=== PATIENT | male | born 1955 | race Caucasian/White ===

== ENCOUNTER 2017-11-09 07:18 | Observation (INO) | END 2017-11-10 17:10 | disposition home health service (06) ==

== ENCOUNTER 2018-06-14 05:40 | Inpatient (IN) | payer MEDICARE, OTHER ==
[~2018-06-14] VITALS: Ht 167.6 cm; Wt 125.6 kg
[2018-06-14] VITALS (23 sets, daily range): BP systolic 129–162; BP diastolic 63–84; PULSE 64–94; RESP 13–20; Ht 167.6 cm; Wt 125.6 kg
[~2018-06-14 05:40] MED LIST: MTF1000T PO
[2018-06-14] MEDS ORDERED: LANSOPRAZOLE 30 MG CAP PO ONE (06:00)
[2018-06-14] MEDS ORDERED: ONDANSETRON 4 MG INJ IV ONE (06:00)
[2018-06-14] MEDS ORDERED: ACETAMINOPHEN 500 MG TAB PO ONE (06:00)
[2018-06-14] MEDS ORDERED: LACTATED RINGER'S 1,000 ML IV SCH (06:00)
[2018-06-14] MEDS ORDERED: oxyCODONE (CR) 10 MG TAB [oxyCONTIN] PO ONE (06:00)
[2018-06-14] MEDS ORDERED: DEXAMETHASONE 4 MG/ML 1 ML INJ IV ONE (06:00)
[2018-06-14] MEDS ORDERED: TRANEXAMIC ACID 1GM/100ML(PMX) 100 ML INTRA-OP X1 IVPB ONE (06:00)
[2018-06-14] MEDS ORDERED: TRANEXAMIC ACID 1GM/100ML(PMX) 100 ML PRE-OP X1 IVPB ONE (06:00)
--- NOTE | 2018-06-14 06:27 | HPN ---
Date/Time of Note Date/Time of Note DATE: 06/14/18 TIME: 06:27 Interval H&P Admission Note Pt. seen H&P reviewed: No system changes ALAYNA APONTE MD June 14, 2018 06:27
[2018-06-14] MEDS ORDERED: POLYMYXIN B 500000 UNIT INJ ONE (06:52)
[2018-06-14] MEDS ORDERED: BACITRACIN 50000 UNITS INJ ONE (06:53)
[2018-06-14] MEDS ORDERED: ACETAMINOPHEN 1000MG/100ML IV 100 ML IVPB ONE (07:00)
[2018-06-14] MEDS ORDERED: DESFLURANE 15 MIN ONE (07:00)
[2018-06-14] MEDS ORDERED: ATOR10TA65 PO (07:13)
[2018-06-14] MEDS ORDERED: CARV25TA79 PO (07:13)
[2018-06-14] MEDS ORDERED: ASPI81TA52 PO (07:13)
[2018-06-14] MEDS ORDERED: GLIP5TAB13 PO (07:14)
[2018-06-14] MEDS ORDERED: INSU100I33 SC (07:14)
[2018-06-14] MEDS ORDERED: PROPOFOL 20 ML ONE (07:27)
[2018-06-14] MEDS ORDERED: NEOSTIGMINE 3 MG/3 ML SYRINGE ONE (07:27)
[2018-06-14] MEDS ORDERED: SUCCINYLCHOLINE CHLORIDE 100 MG/5 ML SYG IV ONE (07:27)
[2018-06-14] MEDS ORDERED: DEXAMETHASONE 4 MG/ML 5 ML INJ ONE (07:27)
[2018-06-14] MEDS ORDERED: GLYCOPYRROLATE 0.4 MG INJ ONE (07:27)
[2018-06-14] MEDS ORDERED: MIDAZOLAM 1 MG/ML 2 ML INJ ONE (07:27)
[2018-06-14] MEDS ORDERED: TRANEXAMIC ACID 1 GM/100 ML (PMX) ONE (07:27)
[2018-06-14] MEDS ORDERED: CEFAZOLIN 1 GM INJ ONE ×2 (07:27)
[2018-06-14] MEDS ORDERED: FENTAnyl 50 MCG/ML VIAL ONE (07:27)
[2018-06-14] MEDS ORDERED: ROCURONIUM 50 MG INJ ONE (07:27)
[2018-06-14] MEDS ORDERED: ONDANSETRON 4 MG INJ ONE (07:27)
[2018-06-14] MEDS ORDERED: morphine SULFATE/PF (10 MG/10 ML) INJ ONE (07:28)
[2018-06-14] MEDS ORDERED: ROPIVACAINE 0.2% 60 ML, morphine SULFATE (PF) 4 MG, CLONIDINE 100 MCG, KETOROLAC 30 MG,... INJ SCH ×7 (07:30)
[2018-06-14] MEDS ORDERED: ROPIVACAINE 0.5 % 30 ML VIAL ONE (08:01)
--- NOTE | 2018-06-14 08:28 | PREAC ---
Date/Time of Note Date/Time of Note DATE: 06/14/18 TIME: 08:27 Anesthesia Eval and Record Evaluation Time Pre-Procedure Interview DATE: 06/14/18 TIME: 08:27 Age 62 Sex male NPO: 8 hrs Preoperative diagnosis LEFT KNEE OA Planned procedure LEFT TKA Past Medical History Past Medical History: Includes Cardio: HTN, Dyslipidemia Endo: Diabetes GI: Morbid obesity Surgery & Anesthesia Issues No known issue Meds Anticoagulation: No Beta Khang within 24 hr: Yes Reported Medications Insulin Glargine,Hum.rec.anlog (Basaglar Kwikpen U-100) 100 Unit/1 Ml Insuln.pen, 30 UNIT SC QHS, EA 06/14/18 Glipizide* (Glipizide*) 5 Mg Tablet, 5 MG PO BID, TAB 06/14/18 Carvedilol* (Carvedilol*) 25 Mg Tablet, 25 MG PO BID, #60 TAB 06/14/18 Atorvastatin Calcium (Atorvastatin Calcium) 10 Mg Tablet, 10 MG PO QHS, #30 TAB 06/14/18 Aspirin (Low Dose Aspirin) 81 Mg Tablet.dr, 81 MG PO DAILY, #30 TAB 06/14/18 Metformin* (Glucophage*) 1,000 Mg Tablet, 1000 MG PO BID, #60 TAB 11/08/17 Discontinued Reported Medications Ciprofloxacin Hcl* (Ciprofloxacin Hcl*) 500 Mg Tablet, 500 MG PO BID, #14 TAB STARTED 11-03-17 FOR 7 DAYS 11/08/17 Losartan Potassium* (Losartan Potassium*) 50 Mg Tablet, 50 MG PO BID, TAB 11/08/17 Glyburide* (Glyburide*) 5 Mg Tablet, 5 MG PO BID, #60 TAB 11/08/17 Current Medications Lactated Ringer's 1,000 ml @ 125 mls/hr Q8H IV Last administered on 06/14/18at 06:51; Admin Dose 125 MLS/HR; Start 06/14/18 at 06:00; Stop 06/14/18 at 13:59 Ropivacaine/ Morphine Sulfate/ Clonidine/ Ketorolac Tromethamine/ Vancomycin HCl/ Sodium Chloride/ Epinephrine INTRA-OP INJ Last administered on 06/14/18at 08:24; Admin Dose 116.3 ML; Start 06/14/18 at 07:30; Stop 06/14/18 at 16:00 Meds reviewed: Yes Allergies Coded Allergies: No Known Allergy (Unverified , 06/14/18) Allergies Reviewed: Yes Labs/Studies Labs Reviewed: Reviewed by anesthesiologist Blood Bank Test 06/14/18 06:20 Antibody Screen NEGATIVE Blood Type O POSITIVE test: N/A Studies: ECG (RBBB, LAHB), CXR (NAD) Pre-procedure Exam Last vitals Vital Signs Date Temp Pulse Resp B/P (MAP) Pulse Ox O2 O2 Flow FiO2 Time Delivery Rate 06/14/18 98.5 64 18 144/79 98 Room Air 07:17 (100) Airway: Adequate mouth opening, Adequate thyromental dist Mallampati: Mallampati II Teeth: Normal Lung: Normal Heart: Normal ASA Physical Status ASA physical status: 3 Emergency: None Planned Anesthetic General/MAC: ETT Neuraxial: Spinal Planned Pain Management Sub-arachniod narcotics, Single shot nerve block, Parenteral pain med Pre-operative Attestations Prior to commencing anesthesia and surgery, the patient was re-evaluated, there was verification of: *The patient's identity *The results of appropriate recent lab work and preoperative vital signs *The above evaluation not changing prior to induction *Anesthetic plan, risk benefits, alternative and complications discussed with patient/family; questions answered; patient/family understands, accepts and wishes to proceed. Jas Garcia M.D. June 14, 2018 08:28
[2018-06-14] MEDS ORDERED: LABETALOL HCL 20MG INJ IV PRN (08:30)
[2018-06-14] MEDS ORDERED: hydrALAzine 20 MG INJ IV PRN ×2 (08:30→15:00)
[2018-06-14] MEDS ORDERED: HYDROmorphONE 0.5 MG/0.5 ML SYG IV PRN ×2 (08:30)
[2018-06-14] MEDS ORDERED: TRIMETHOBENZAMIDE 100 MG/ML VIAL IM PRN ×2 (08:30)
[2018-06-14] MEDS ORDERED: NALOXONE (0.4 MG/ML) INJ IV PRN ×2 (08:30→10:00)
[2018-06-14] MEDS ORDERED: MIDAZOLAM 1 MG/ML 2 ML INJ IV PRN (08:30)
[2018-06-14] MEDS ORDERED: EPHEDrine SULFATE 50 MG/5 ML SYG IV PRN (08:30)
[2018-06-14] MEDS ORDERED: HYDROmorphONE 1 MG/5 ML IV SYRINGE IV PRN ×3 (08:30)
[2018-06-14] MEDS ORDERED: DIPHENHYDRAMINE 50 MG INJ IV PRN ×2 (08:30)
[2018-06-14] MEDS ORDERED: ALBUTEROL 0.083% (NEB) 2.5 MG/3 ML AMP HHN PRN (08:30)
[2018-06-14] MEDS ORDERED: ONDANSETRON 4 MG INJ IV PRN ×2 (08:30)
[2018-06-14] MEDS ORDERED: NALBUPHINE HCL (10 MG/1 ML) INJ IV PRN (08:30)
[2018-06-14] MEDS ORDERED: MEPERIDINE 25 MG INJ IV PRN (08:30)
[2018-06-14] MEDS ORDERED: OXYCODONE/ACETAMINOPHEN (5/325) TAB PO PRN ×2 (08:30)
[2018-06-14] MEDS ORDERED: FENTAnyl 50 MCG/ML VIAL IV PRN ×3 (08:30)
[2018-06-14] MEDS ORDERED: IPRATROPIUM (NEB) 0.5 MG/2.5 ML AMP HHN PRN (08:30)
[2018-06-14] MEDS ORDERED: KETOROLAC 30 MG INJ IV PRN (08:30)
[2018-06-14] MEDS ORDERED: SUGAMMADEX SODIUM 200 MG/2 ML VIAL IV ONE (09:47)
--- NOTE | 2018-06-14 09:47 | SIPON ---
Date/Time of Note Date/Time of Note DATE: 06/14/18 TIME: 09:46 Operative Report Preoperative Diagnosis Left Knee Osteoarthritis Postoperative Diagnosis Same Operation/Procedure Performed Left Total Knee Arthroplasty Surgeon Messi Aponte MD assistant scientist Jeovany Wilkinson Second assist: ANNA RESTREPO Anesthesia: spinal Estimated blood loss: other Transfusion Required none Specimen bone Grafts/Implants none Complications none MESSI APONTE MD June 14, 2018 09:47
[2018-06-14] MEDS ORDERED: NACL 0.9% 3 ML SYG IV SCH (10:00)
[2018-06-14] MEDS ORDERED: DOCUSATE SODIUM 100 MG CAP PO ONE (10:00)
--- NOTE | 2018-06-14 10:36 | OPR ---
Date/Time of Note Date/Time of Note DATE: 06/14/18 TIME: 10:23 Operative Report Free Text/Dictation DATE OF OPERATION: June 14, 2018 SURGEON: Alayna Aponte MD PRINTING MACHINE OPERATOR TAPE RULES: Jeovany ALTAMIRANO PRINTING MACHINE OPERATOR TAPE RULES: RAYA Merino PREOPERATIVE DIAGNOSIS: Left knee osteoarthritis. POSTOPERATIVE DIAGNOSIS: Left knee osteoarthritis. PROCEDURES PERFORMED: Left total knee arthroplasty, CPT code 75151. ANESTHESIOLOGIST: Dr. Garcia ANESTHESIA: Spinal. ESTIMATED BLOOD LOSS: 300 mL. COMPLICATIONS: None. SPECIMENS: Resected bone. DISPOSITION: PACU in stable condition. TOURNIQUET TIME: 62 minutes at 250 mmHg. IMPLANT USED: Castellanos and Nephew size 5 Sadia tibial baseplate with 12 x 100 mm stem, size 5 posterior stabilized Oxinium femur, size 11 high flexion polyethylene, size 35 mm patella. INDICATION FOR PROCEDURE: This is an 62-year-old male with end-stage osteoarthritis of the left knee who had failed nonoperative management. Risks, benefits, alternatives of surgical intervention were discussed with the patient and informed consent was obtained. The risks of surgery include but are not limited to infection, deep venous thrombosis, pulmonary embolism, damage to nerves and blood vessels, numbness around incision site, stiffness of knee, need for total knee manipulation under anesthesia, need for blood transfuion, heart attack, stroke, risks associated with anesthesia, implant loosening, wear of prosthesis, need for revision surgery, and . DESCRIPTION OF PROCEDURE: The patient was met in the preoperative suite. The correct operative site was confirmed and marked. The patient was then brought into operating room. After induction of anesthesia, the patient was placed in the supine position on the operating room table. A tourniquet was applied to left upper thigh. The left lower extremity was prepped and draped in the usual sterile fashion. Before starting, a timeout was taken to identify the correct operative site and confirm preoperative antibiotics consisting of 1 g of IV Ancef, along with 1 g of tranexamic acid were administered. At this point, the left leg was elevated and exsanguinated with an Esmarch and tourniquet was then insufflated for the above noted time. A midline incision was made and median parapatellar arthrotomy was then completed. The lateral patellar retinacular ligaments were released. A sleeve of tissue was released from the medial proximal tibia. The cruciate ligaments and the menisci were then excised. At this point, the custom distal femur cutting block was then pinned and 9.5 mm was resected from the distal femur. The 4-in-1 cutting block, size 5 was then placed. An sp wing was used to confirm that notching of the anterior cortex of the femur would not occur. The anterior and posterior condylar cuts were completed followed by the anterior and posterior chamfer cuts. The osteophytes were then removed with a rongeur. At this point, the tibia was subluxed anteriorly. Appropriate retractors were placed. The custom tibial cutting block was then pinned. The drop love was used to ensure the correct alignment. Approximately 11 mm was resected off the lateral tibial plateau and 1 mm off the medial tibial plateau. Osteophytes were then removed. At this point, the flexion extension gaps were checked with a 9 mm gap cash checker and noted to be loose in both. Next, trial 5 femur was then pinned and the box cut was then completed. The tibia was then subluxed anteriorly and measured to size 5. The tibial tray was then pinned and a keel was then punched. The trial components were placed with a 11 mm polyethylene and noted to have full extension and greater than 120 degrees of flexion. The patella was then subluxed laterally and sized to 24 mm. Approximately, 9 mm was resected. The patellar button was sized to 35 mm. The button was placed and noted to have excellent patellar tracking. The trial components were removed. Due to the patient's BMI, reaming was performed for tibial stem. All bony surfaces were pulse lavaged and dried. The appropriate size components were then cemented and the knee was held in extension with a 11 mm trial polyethylene until the cement cured. Once the cement had cured, the trial polyethylene was removed and the appropriate size polyethylene was then placed. The tranexamic acid was redosed. The cocktail was then injected. The extensor mechanism was closed using #1 Stratafix and the subcutaneous tissue with 2-0 Vicryl and the skin with 4-0 Monocryl. Steri-Strips were applied along with a sterile dressing. There were no complications. The patient was transferred to PACU in stable condition. POSTOPERATIVE CARE: The patient will be weightbearing as tolerated. The patient will work with physical therapy, and will receive two additional doses of IV antibiotics along with aspirin 81 mg p.o. b.i.d. for 6 weeks. Upon d ischarge, patient will follow up in my office within 2 weeks postoperatively. ALAYNA APONTE MD June 14, 2018 10:36
--- NOTE | 2018-06-14 10:41 | PAC ---
Date/Time of Note Date/Time of Note DATE: 06/14/18 TIME: 10:41 Post-Anesthesia Notes Post-Anesthesia Note Last documented vital signs Vital Signs Date Temp Pulse Resp B/P (MAP) Pulse Ox O2 O2 Flow FiO2 Time Delivery Rate 06/14/18 98.5 64 18 144/79 98 Room Air 07:17 (100) Activity: WNL Respiratory function: WNL Cardiovascular function: WNL Mental status: Baseline Pain reasonably controlled: Yes Hydration appropriate: Yes Nausea/Vomiting absent: Yes Jas Garcia M.D. June 14, 2018 10:41
[2018-06-14] MEDS: CEFAZOLIN 2 GM/50 ML (PMX) 50 ML IVPB SCH ×2 (10:55→18:36)
[2018-06-14] MEDS: ONDANSETRON 4 MG INJ IV SCH ×3 (10:56→21:45)
[2018-06-14] MEDS: INSULIN ASPART [NOVOLOG] 3 ML PEN SC SCH ×4 (11:40→23:18)
--- NOTE | 2018-06-14 11:50 | CONS ---
Assessment/Plan Assessment/Plan Hospital Course (Demo Recall) Patient is a male with a past medical history significant for osteoarthritis, this lipidemia, hypertension, diabetes mellitus who presents to [facility] for elective left knee replacement. Patient doing well in the postanesthesia care unit, has no acute complaints at this time, no chest pain, no shortness of breath, no headache, no nausea, no vomiting. Patient able to wiggle his toes on both sides. Objective Physical exam General: Patient is laying in bed and answers questions appropriately Mentation: Patient is alert and oriented 4, Head: Normocephalic atraumatic Eyes: EOMI, pupils reactive to light Neck: Supple, nontender, midline Respiratory: Clear to auscultation bilaterally Cardiovascular: regular rate, no obvious murmurs Gastrointestinal: non-tender to palpation, bowel sounds heard. Neurological: Moves all extremities spontaneously, left leg motion reduced due to bandage Skin: Surgical site bandaged, CDI Assessment and plan Total left knee arthroplasty secondary to osteo-arthritis -Orthopedic surgery to manage -Pain control -Monitor Hypertension -Continue home meds Diabetes mellitus -Continue home Lantus, insulin sliding scale, hold p.o. meds for now Dyslipidemia -Continue home meds Disposition -We will continue to follow along as internal medicine consult, orthopedic surgery to manage. Consultation Date/Type/Reason Admit Date/Time June 14, 2018 at 05:40 Date/Time of Note DATE: 06/14/18 TIME: 11:49 Past Medical History Home Meds Reported Medications Insulin Glargine,Hum.rec.anlog (Chaunceyagljayce Luzpen U-100) 100 Unit/1 Ml Insuln.pen, 30 UNIT SC QHS, EA 06/14/18 Glipizide* (Glipizide*) 5 Mg Tablet, 5 MG PO BID, TAB 06/14/18 Carvedilol* (Carvedilol*) 25 Mg Tablet, 25 MG PO BID, #60 TAB 06/14/18 Atorvastatin Calcium (Atorvastatin Calcium) 10 Mg Tablet, 10 MG PO QHS, #30 TAB 06/14/18 Aspirin (Low Dose Aspirin) 81 Mg Tablet.dr, 81 MG PO DAILY, #30 TAB 06/14/18 Metformin* (Glucophage*) 1,000 Mg Tablet, 1000 MG PO BID, #60 TAB 11/08/17 Discontinued Reported Medications Ciprofloxacin Hcl* (Ciprofloxacin Hcl*) 500 Mg Tablet, 500 MG PO BID, #14 TAB STARTED 11-03-17 FOR 7 DAYS 11/08/17 Losartan Potassium* (Losartan Potassium*) 50 Mg Tablet, 50 MG PO BID, TAB 11/08/17 Glyburide* (Glyburide*) 5 Mg Tablet, 5 MG PO BID, #60 TAB 11/08/17 Medications Current Medications Lactated Ringer's 1,000 ml @ 125 mls/hr Q8H IV Last administered on 06/14/18at 06:51; Admin Dose 125 MLS/HR; Start 06/14/18 at 06:00; Stop 06/14/18 at 13:59 Ropivacaine/ Morphine Sulfate/ Clonidine/ Ketorolac Tromethamine/ Vancomycin HCl/ Sodium Chloride/ Epinephrine INTRA-OP INJ Last administered on 06/14/18at 08:24; Admin Dose 116.3 ML; Start 06/14/18 at 07:30; Stop 06/14/18 at 16:00 Hydromorphone HCl (Dilaudid) 0.2 mg PACU PRN IV MILD PAIN 1-3; Start 06/14/18 at 08:30; Stop 06/14/18 at 19:00 Hydromorphone HCl (Dilaudid) 0.4 mg PACU PRN IV MOD PAIN 4-6; Start 06/14/18 at 08:30; Stop 06/14/18 at 19:00 Hydromorphone HCl (Dilaudid) 0.6 mg PACU PRN IV SEVERE PAIN 7-10; Start 06/14/18 at 08:30; Stop 06/14/18 at 19:00 Fentanyl (Sublimaze) 25 mcg PACU ORDER PRN IV MILD PAIN 1-3; Start 06/14/18 at 08:30; Stop 06/14/18 at 19:00 Fentanyl (Sublimaze) 50 mcg PACU ORDER PRN IV MOD PAIN 4-6; Start 06/14/18 at 08:30; Stop 06/14/18 at 19:00 Fentanyl (Sublimaze) 75 mcg PACU ORDER PRN IV SEVERE PAIN 7-10; Start 06/14/18 at 08:30; Stop 06/14/18 at 19:00 Oxycodone/ Acetaminophen (Percocet (5/ 325)) 1 tab PACU ORDER PRN PO .PAIN 1-5; Start 06/14/18 at 08:30; Stop 06/14/18 at 19:00 Oxycodone/ Acetaminophen (Percocet (5/ 325)) 2 tab PACU ORDER PRN PO .PAIN 6-10; Start 06/14/18 at 08:30; Stop 06/14/18 at 19:00 Ondansetron HCl (Zofran Inj) 4 mg PACU ORDER PRN IV NAUSEA/VOMITING; Start 06/14/18 at 08:30; Stop 06/14/18 at 19:00 Trimethobenzamide HCl (Tigan) 200 mg PACU ORDER PRN IM NAUSEA/VOMITING; Start 06/14/18 at 08:30; Stop 06/14/18 at 19:00 Labetalol HCl (Labetalol) 5 mg PACU ORDER PRN IV HIGH BLOOD PRESSURE; Start 06/14/18 at 08:30; Stop 06/14/18 at 19:00 Hydralazine HCl (Apresoline) 5 mg PACU ORDER PRN IV HIGH BLOOD PRESSURE; Start 06/14/18 at 08:30; Stop 06/14/18 at 19:00 Ephedrine Sulfate 5 mg PACU ORDER PRN IV BLOOD PRESSURE SUPPORT; Start 06/14/18 at 08:30; Stop 06/14/18 at 19:00 Albuterol (Proventil 0.083% (Neb)) 2.5 mg PACU ORDER PRN HHN .WHEEZING; Start 06/14/18 at 08:30; Stop 06/14/18 at 19:00 Ipratropium [place] (Atrovent 0.02% (Neb)) 0.5 mg PACU ORDER PRN HHN .WHEEZING; Start 06/14/18 at 08:30; Stop 06/14/18 at 19:00 Meperidine HCl (Demerol) 25 mg PACU ORDER PRN IV .RIGORS; Start 06/14/18 at 08:30; Stop 06/14/18 at 19:00 Diphenhydramine HCl (Benadryl) 25 mg PACU ORDER PRN IV .PRURITUS; Start 06/14/18 at 08:30 Midazolam HCl (Versed) 0.5 mg PACU ORDER PRN IV .ANXIETY; Start 06/14/18 at 08:30; Stop 06/14/18 at 19:00 Hydromorphone HCl (Dilaudid) 0.2 mg Q2H PRN IV .PAIN 1-5; Start 06/14/18 at 08:30; Stop 06/15/18 at 08:29 Hydromorphone HCl (Dilaudid) 0.4 mg Q2H PRN IV .PAIN 6-10; Start 06/14/18 at 08:30; Stop 06/15/18 at 08:29 Ketorolac Tromethamine (Toradol) 30 mg Q6H PRN IV .PAIN 6-10; Start 06/14/18 at 08:30; Stop 06/15/18 at 08:29 Diphenhydramine HCl (Benadryl) 25 mg Q4H PRN IV .PRURITUS; Start 06/14/18 at 08:30; Stop 06/15/18 at 08:29 Nalbuphine HCl (Nubain) 10 mg Q4H PRN IV .PRURITUS; Start 06/14/18 at 08:30; Stop 06/15/18 at 08:29 Ondansetron HCl (Zofran Inj) 4 mg Q6H PRN IV .NAUSEA/VOMITING; Start 06/14/18 at 08:30; Stop 06/15/18 at 08:29 Trimethobenzamide HCl (Tigan) 200 mg Q6H PRN IM .NAUSEA/VOMITING; Start 06/14/18 at 08:30; Stop 06/15/18 at 08:29 Naloxone HCl (Narcan) 0.2 mg Q2M PRN IV .RESP RATE; Start 06/14/18 at 08:30; Stop 06/15/18 at 08:29 Miscellaneous Information (* Miscellaneous Pharmacy Order) DURAMORPH: 0.1 MG SPI... GIVEN NEURAXIAL XX ; Start 06/14/18 at 08:30 IV Flush (NS 3 ml) 3 ml PER PROTOCOL IV ; Start 06/14/18 at 10:00 Ketorolac Tromethamine (Toradol) 15 mg Q6H PRN IV .PAIN; Start 06/14/18 at 10:00 Ondansetron HCl (Zofran Inj) 4 mg Q6H IV Last administered on 06/14/18at 10:56; Admin Dose 4 MG; Start 06/14/18 at 10:00; Stop 06/15/18 at 04:01 Cefazolin Sodium/ Dextrose 50 ml @ 100 mls/hr Q8H IVPB Last administered on 06/14/18at 10:55; Admin Dose 100 MLS/HR; Start 06/14/18 at 10:00; Stop 06/15/18 at 02:29 Celecoxib (Celebrex) 100 mg BID PO ; Start 06/15/18 at 09:00 Gabapentin (Neurontin) 100 mg TID PO ; Start 06/14/18 at 13:00 Pantoprazole (Protonix Tab) 40 mg DAILY@06 PO ; Start 06/16/18 at 06:00 Naloxone HCl (Narcan) 0.2 mg Q2M PRN IV .RESP RATE; Start 06/14/18 at 10:00 Aspirin (Halfprin) 81 mg BID PO ; Start 06/15/18 at 09:00 Acetaminophen/ Hydrocodone Bitart ([place] (5/325)) 2 tab Q6H PRN PO MODERATE PAIN LEVEL 4-6; Start 06/14/18 at 10:00 Atorvastatin Calcium (Lipitor) 10 mg QHS PO ; Start 06/14/18 at 21:00; Status UNV Carvedilol (Coreg) 25 mg BID PO ; Start 06/14/18 at 21:00; Status UNV Insulin Glargine (Lantus) 30 unit QHS SC ; Start 06/14/18 at 21:00; Status UNV Metformin HCl (Glucophage) 1,000 mg BID PO ; Start 06/14/18 at 21:00; Status UNV Glipizide (Glucotrol) 5 mg WITH BREAKFAST DINNE PO ; Start 06/14/18 at 17:55; Status UNV Miscellaneous Information (* Miscellaneous Pharmacy Order) Discontinue current oral sulfonylur... ONCE ONCE XX ; Start 06/14/18 at 11:30; Stop 06/14/18 at 11:31; Status UNV Diagnostic Test (Pha) (Accu-Chek) 1 XX ; Start 06/15/18 at 02:00; Status UNV Miscellaneous Information (* Miscellaneous Pharmacy Order) HYPOGLYCEMIA PROTOCOL w... ONCE ONCE XX ; Start 06/14/18 at 11:30; Stop 06/14/18 at 11:31; Status UNV Insulin Aspart (Novolog Insulin Pen) NOVOLOG *MILD* ALGORITHM WITH MEALS BEDTIME SC ; Start 06/14/18 at 11:40; Status UNV Miscellaneous Information (* Miscellaneous Pharmacy Order) Discontinue all previ... ONCE ONCE XX ; Start 06/14/18 at 11:30; Stop 06/14/18 at 11:31; Status UNV Allergies: Coded Allergies: No Known Allergy (Unverified , 06/14/18) Past Surgical History Past Surgical Hx: no surgical history Social History Smoking Status: Former smoker Exam/Review of Systems Exam Vitals Vital Signs Date Temp Pulse Resp B/P (MAP) Pulse Ox O2 O2 Flow FiO2 Time Delivery Rate 06/14/18 99.6 11:42 06/14/18 76 16 135/77 95 Nasal 2.0 11:20 (96) Cannula Results Results 24hrs Laboratory Tests Test 06/14/18 06:36 Bedside Glucose 184 Medications Medication Current Medications Lactated Ringer's 1,000 ml @ 125 mls/hr Q8H IV Last administered on 06/14/18at 06:51; Admin Dose 125 MLS/HR; Start 06/14/18 at 06:00; Stop 06/14/18 at 13:59 Ropivacaine/ Morphine Sulfate/ Clonidine/ Ketorolac Tromethamine/ Vancomycin HCl/ Sodium Chloride/ Epinephrine INTRA-OP INJ Last administered on 06/14/18at 08:24; Admin Dose 116.3 ML; Start 06/14/18 at 07:30; Stop 06/14/18 at 16:00 Hydromorphone HCl (Dilaudid) 0.2 mg PACU PRN IV MILD PAIN 1-3; Start 06/14/18 at 08:30; Stop 06/14/18 at 19:00 Hydromorphone HCl (Dilaudid) 0.4 mg PACU PRN IV MOD PAIN 4-6; Start 06/14/18 at 08:30; Stop 06/14/18 at 19:00 Hydromorphone HCl (Dilaudid) 0.6 mg PACU PRN IV SEVERE PAIN 7-10; Start 06/14/18 at 08:30; Stop 06/14/18 at 19:00 Fentanyl (Sublimaze) 25 mcg PACU ORDER PRN IV MILD PAIN 1-3; Start 06/14/18 at 08:30; Stop 06/14/18 at 19:00 Fentanyl (Sublimaze) 50 mcg PACU ORDER PRN IV MOD PAIN 4-6; Start 06/14/18 at 08:30; Stop 06/14/18 at 19:00 Fentanyl (Sublimaze) 75 mcg PACU ORDER PRN IV SEVERE PAIN 7-10; Start 06/14/18 at 08:30; Stop 06/14/18 at 19:00 Oxycodone/ Acetaminophen (Percocet (5/ 325)) 1 tab PACU ORDER PRN PO .PAIN 1-5; Start 06/14/18 at 08:30; Stop 06/14/18 at 19:00 Oxycodone/ Acetaminophen (Percocet (5/ 325)) 2 tab PACU ORDER PRN PO .PAIN 6-10; Start 06/14/18 at 08:30; Stop 06/14/18 at 19:00 Ondansetron HCl (Zofran Inj) 4 mg PACU ORDER PRN IV NAUSEA/VOMITING; Start 06/14/18 at 08:30; Stop 06/14/18 at 19:00 Trimethobenzamide HCl (Tigan) 200 mg PACU ORDER PRN IM NAUSEA/VOMITING; Start 06/14/18 at 08:30; Stop 06/14/18 at 19:00 Labetalol HCl (Labetalol) 5 mg PACU ORDER PRN IV HIGH BLOOD PRESSURE; Start 06/14/18 at 08:30; Stop 06/14/18 at 19:00 Hydralazine HCl (Apresoline) 5 mg PACU ORDER PRN IV HIGH BLOOD PRESSURE; Start 06/14/18 at 08:30; Stop 06/14/18 at 19:00 Ephedrine Sulfate 5 mg PACU ORDER PRN IV BLOOD PRESSURE SUPPORT; Start 06/14/18 at 08:30; Stop 06/14/18 at 19:00 Albuterol (Proventil 0.083% (Neb)) 2.5 mg PACU ORDER PRN HHN .WHEEZING; Start 06/14/18 at 08:30; Stop 06/14/18 at 19:00 Ipratropium [place] (Atrovent 0.02% (Neb)) 0.5 mg PACU ORDER PRN HHN .WHEEZING; Start 06/14/18 at 08:30; Stop 06/14/18 at 19:00 Meperidine HCl (Demerol) 25 mg PACU ORDER PRN IV .RIGORS; Start 06/14/18 at 08:30; Stop 06/14/18 at 19:00 Diphenhydramine HCl (Benadryl) 25 mg PACU ORDER PRN IV .PRURITUS; Start 06/14/18 at 08:30 Midazolam HCl (Versed) 0.5 mg PACU ORDER PRN IV .ANXIETY; Start 06/14/18 at 08:30; Stop 06/14/18 at 19:00 Hydromorphone HCl (Dilaudid) 0.2 mg Q2H PRN IV .PAIN 1-5; Start 06/14/18 at 08:30; Stop 06/15/18 at 08:29 Hydromorphone HCl (Dilaudid) 0.4 mg Q2H PRN IV .PAIN 6-10; Start 06/14/18 at 08:30; Stop 06/15/18 at 08:29 Ketorolac Tromethamine (Toradol) 30 mg Q6H PRN IV .PAIN 6-10; Start 06/14/18 at 08:30; Stop 06/15/18 at 08:29 Diphenhydramine HCl (Benadryl) 25 mg Q4H PRN IV .PRURITUS; Start 06/14/18 at 08:30; Stop 06/15/18 at 08:29 Nalbuphine HCl (Nubain) 10 mg Q4H PRN IV .PRURITUS; Start 06/14/18 at 08:30; Stop 06/15/18 at 08:29 Ondansetron HCl (Zofran Inj) 4 mg Q6H PRN IV .NAUSEA/VOMITING; Start 06/14/18 at 08:30; Stop 06/15/18 at 08:29 Trimethobenzamide HCl (Tigan) 200 mg Q6H PRN IM .NAUSEA/VOMITING; Start 06/14/18 at 08:30; Stop 06/15/18 at 08:29 Naloxone HCl (Narcan) 0.2 mg Q2M PRN IV .RESP RATE; Start 06/14/18 at 08:30; Stop 06/15/18 at 08:29 Miscellaneous Information (* Miscellaneous Pharmacy Order) DURAMORPH: 0.1 MG SPI... GIVEN NEURAXIAL XX ; Start 06/14/18 at 08:30 IV Flush (NS 3 ml) 3 ml PER PROTOCOL IV ; Start 06/14/18 at 10:00 Ketorolac Tromethamine (Toradol) 15 mg Q6H PRN IV .PAIN; Start 06/14/18 at 10:00 Ondansetron HCl (Zofran Inj) 4 mg Q6H IV Last administered on 06/14/18at 10:56; Admin Dose 4 MG; Start 06/14/18 at 10:00; Stop 06/15/18 at 04:01 Cefazolin Sodium/ Dextrose 50 ml @ 100 mls/hr Q8H IVPB Last administered on 06/14/18at 10:55; Admin Dose 100 MLS/HR; Start 06/14/18 at 10:00; Stop 06/15/18 at 02:29 Celecoxib (Celebrex) 100 mg BID PO ; Start 06/15/18 at 09:00 Gabapentin (Neurontin) 100 mg TID PO ; Start 06/14/18 at 13:00 Pantoprazole (Protonix Tab) 40 mg DAILY@06 PO ; Start 06/16/18 at 06:00 Naloxone HCl (Narcan) 0.2 mg Q2M PRN IV .RESP RATE; Start 06/14/18 at 10:00 Aspirin (Halfprin) 81 mg BID PO ; Start 06/15/18 at 09:00 Acetaminophen/ Hydrocodone Bitart ([place] (5/325)) 2 tab Q6H PRN PO MODERATE PAIN LEVEL 4-6; Start 06/14/18 at 10:00 Atorvastatin Calcium (Lipitor) 10 mg QHS PO ; Start 06/14/18 at 21:00; Status UNV Carvedilol (Coreg) 25 mg BID PO ; Start 06/14/18 at 21:00; Status UNV Insulin Glargine (Lantus) 30 unit QHS SC ; Start 06/14/18 at 21:00; Status UNV Metformin HCl (Glucophage) 1,000 mg BID PO ; Start 06/14/18 at 21:00; Status UNV Glipizide (Glucotrol) 5 mg WITH BREAKFAST DINNE PO ; Start 06/14/18 at 17:55; Status UNV Miscellaneous Information (* Miscellaneous Pharmacy Order) Discontinue current oral sulfonylur... ONCE ONCE XX ; Start 06/14/18 at 11:30; Stop 06/14/18 at 11:31; Status UNV Diagnostic Test (Pha) (Accu-Chek) 1 XX ; Start 06/15/18 at 02:00; Status UNV Miscellaneous Information (* Miscellaneous Pharmacy Order) HYPOGLYCEMIA PROTOCOL w... ONCE ONCE XX ; Start 06/14/18 at 11:30; Stop 06/14/18 at 11:31; Status UNV Insulin Aspart (Novolog Insulin Pen) NOVOLOG *MILD* ALGORITHM WITH MEALS BEDTIME SC ; Start 06/14/18 at 11:40; Status UNV Miscellaneous Information (* Miscellaneous Pharmacy Order) Discontinue all previ... ONCE ONCE XX ; Start 06/14/18 at 11:30; Stop 06/14/18 at 11:31; Status UNV EMILY FRANKLIN June 14, 2018 11:50
[2018-06-14] MEDS: GABAPENTIN 100 MG CAP PO SCH ×2 (13:37→21:44)
[2018-06-14] MEDS ORDERED: INSULIN GLARGINE [LANTus] (100 UNITS/ML) SYG SC SCH (21:00)
[2018-06-14] MEDS ORDERED: metFORMIN 500 MG TAB PO SCH (21:00)
[2018-06-14] MEDS: ATORVASTATIN 10 MG TAB PO SCH (21:44)
[2018-06-14] MEDS: INSULIN GLARGINE [LANTus] (100 UNITS/ML) SYG SC SCH (23:16)
[2018-06-15] MEDS: CEFAZOLIN 2 GM/50 ML (PMX) 50 ML IVPB SCH (01:59)
[2018-06-15 02:00] VITALS: BP 140/65; PULSE 86; RESP 18
[2018-06-15] MEDS: ACCU-CHEK XX SCH (03:10)
[2018-06-15] MEDS: ONDANSETRON 4 MG INJ IV SCH (03:46)
[2018-06-15 07:10] VITALS: BP 130/58; PULSE 81; RESP 18
[2018-06-15] MEDS: CELECOXIB 100 MG CAP PO SCH ×2 (08:26→20:30)
[2018-06-15] MEDS: GABAPENTIN 100 MG CAP PO SCH ×3 (08:27→20:31)
[2018-06-15] MEDS: ASPIRIN (EC) 81 MG TAB PO SCH ×2 (08:27→20:30)
[2018-06-15] MEDS: KETOROLAC 15 MG INJ IV PRN ×2 (08:28→23:48)
[2018-06-15] MEDS: INSULIN ASPART [NOVOLOG] 3 ML PEN SC SCH ×4 (09:03→20:36)
--- NOTE | 2018-06-15 11:59 | PN ---
Date/Time of Note Date/Time of Note DATE: 06/15/18 TIME: 11:58 Objective Vitals Vital Signs Date Temp Pulse Resp B/P (MAP) Pulse Ox O2 O2 Flow FiO2 Time Delivery Rate 06/15/18 Nasal 4.0 08:42 Cannula 06/15/18 98.4 81 18 130/58 97 07:10 (82) Intake and Output 06/14/18 06/14/18 06/15/18 1515:00 23:00 07:00 IntakeIntake Total 4250 ml 650 ml 50 ml OutputOutput Total 500 ml 700 ml 800 ml BalanceBalance 3750 ml -50 ml -750 ml Results Result Diagram: 06/15/18 0443 06/15/18 0443 Medications Medications Current Medications Diphenhydramine HCl (Benadryl) 25 mg PACU ORDER PRN IV .PRURITUS; Start 06/14/18 at 08:30 Miscellaneous Information (* Miscellaneous Pharmacy Order) DURAMORPH: 0.1 MG SPI... GIVEN NEURAXIAL XX ; Start 06/14/18 at 08:30 IV Flush (NS 3 ml) 3 ml PER PROTOCOL IV ; Start 06/14/18 at 10:00 Ketorolac Tromethamine (Toradol) 15 mg Q6H PRN IV .PAIN Last administered on 06/15/18at 08:28; Admin Dose 15 MG; Start 06/14/18 at 10:00 Celecoxib (Celebrex) 100 mg BID PO Last administered on 06/15/18at 08:26; Admin Dose 100 MG; Start 06/15/18 at 09:00 Gabapentin (Neurontin) 100 mg TID PO Last administered on 06/15/18at 08:27; Admin Dose 100 MG; Start 06/14/18 at 13:00 Pantoprazole (Protonix Tab) 40 mg DAILY@06 PO ; Start 06/16/18 at 06:00 Naloxone HCl (Narcan) 0.2 mg Q2M PRN IV .RESP RATE; Start 06/14/18 at 10:00 Aspirin (Halfprin) 81 mg BID PO Last administered on 06/15/18at 08:27; Admin Dose 81 MG; Start 06/15/18 at 09:00 Acetaminophen/ Hydrocodone Bitart ([place] (5/325)) 2 tab Q6H PRN PO MODERATE PAIN LEVEL 4-6; Start 06/14/18 at 10:00 Atorvastatin Calcium (Lipitor) 10 mg QHS PO Last administered on 06/14/18at 21:44; Admin Dose 10 MG; Start 06/14/18 at 21:00 Carvedilol (Coreg) 25 mg BID PO Last administered on 06/15/18at 08:27; Admin Dose 25 MG; Start 06/14/18 at 21:00 Metformin HCl (Glucophage) 1,000 mg BID PO ; Start 06/14/18 at 21:00 Glipizide (Glucotrol) 5 mg WITH BREAKFAST DINNE PO ; Start 06/14/18 at 17:55 Diagnostic Test (Pha) (Accu-Chek) 1 ea 02 XX Last administered on 06/15/18at 03:10; Admin Dose 1 EA; Start 06/15/18 at 02:00 Insulin Aspart (Novolog Insulin Pen) NOVOLOG *MILD* ALGORITHM WITH MEALS BEDTIME SC Last administered on 06/15/18at 09:03; Admin Dose 4 UNIT; Start 06/14/18 at 11:40 Hydralazine HCl (Apresoline) 10 mg Q4H PRN IV sbp >160; Start 06/14/18 at 15:00 Insulin Glargine (Lantus) 30 units QHS SC Last administered on 06/14/18at 23:16; Admin Dose 30 UNITS; Start 06/14/18 at 22:00 VTE Prophylaxis Risk score (from Nsg)>0 risk: 12 SCD applied (from Ns): Yes Lines/Catheters IV Catheter Type: Bernal in Place: No Assessment/Plan Hospital Course Subjective No acute complaints, high sugars overnight Objective Physical exam General: Patient is laying in bed and answers questions appropriately Mentation: Patient is alert and oriented 4, Head: Normocephalic atraumatic Eyes: EOMI, pupils reactive to light Neck: Supple, nontender, midline Respiratory: Clear to auscultation bilaterally Cardiovascular: regular rate, no obvious murmurs Gastrointestinal: non-tender to palpation, bowel sounds heard. Neurological: Moves all extremities spontaneously, left leg motion reduced due to bandage Skin: Surgical site bandaged, CDI Assessment and plan Total left knee arthroplasty secondary to osteo-arthritis -Orthopedic surgery to manage -Pain control -Monitor Hypertension -Continue home meds Diabetes mellitus -Continue home Lantus, insulin sliding scale, -Sugars elevated overnight however did not restart patient on his oral medications, was waiting for morning labs, now within normal limits -Restart home meds -According to daughter and patient patient's blood sugars are well controlled with current regimen at home, may continue current regimen with no changes when discharge. Dyslipidemia -Continue home meds Disposition -Orthopedic surgery to discharge, patient stable from internal medicine standpoint. EMILY FRANKLIN June 15, 2018 11:59
[2018-06-15] MEDS ORDERED: ALBUTEROL/IPRATROPIUM (NEB) 3 ML AMP HHN PRN (14:30)
[2018-06-15 14:56] VITALS: BP 137/65; PULSE 70; RESP 18
[2018-06-15] MEDS: BUDESONIDE (NEB) 0.5MG/2ML AMP HHN SCH ×2 (15:41→20:42)
[2018-06-15] MEDS: glipiZIDE 5 MG TAB PO SCH (17:51)
[2018-06-15] MEDS: metFORMIN 500 MG TAB PO SCH (17:52)
[2018-06-15 19:10] VITALS: BP_SYST 124; BP_SYST 155; BP_DIAS 71; BP_DIAS 73; PULSE 78; PULSE 82; RESP 20
[2018-06-15] MEDS: ATORVASTATIN 10 MG TAB PO SCH (20:30)
[2018-06-15] MEDS: INSULIN GLARGINE [LANTus] (100 UNITS/ML) SYG SC SCH (20:35)
[2018-06-15] MEDS: ALBUTEROL/IPRATROPIUM (NEB) 3 ML AMP HHN SCH (20:42)
[2018-06-16 02:00] VITALS: BP 141/71; PULSE 67; RESP 20
[2018-06-16] MEDS: ACCU-CHEK XX SCH (02:00)
[2018-06-16] MEDS: PANTOPRAZOLE (EC) 40 MG TAB PO SCH (05:59)
[2018-06-16] MEDS: HYDROCODONE/APAP (5/325) TAB PO PRN (05:59)
[2018-06-16 07:43] VITALS: BP 161/80; PULSE 65; RESP 18
[2018-06-16] MEDS: CELECOXIB 100 MG CAP PO SCH ×2 (07:55→20:56)
[2018-06-16] MEDS: ASPIRIN (EC) 81 MG TAB PO SCH ×2 (07:58→20:56)
[2018-06-16] MEDS: GABAPENTIN 100 MG CAP PO SCH ×3 (07:59→20:56)
[2018-06-16] MEDS ORDERED: hydrALAzine 20 MG INJ IV PRN (08:00)
[2018-06-16] MEDS ORDERED: FUROSEMIDE 20 MG INJ IV ONE (08:30)
[2018-06-16] MEDS: ALBUTEROL/IPRATROPIUM (NEB) 3 ML AMP HHN SCH ×3 (09:05→19:10)
[2018-06-16 09:15] VITALS: BP 137/67; PULSE 62; RESP 22
[2018-06-16] MEDS: BUDESONIDE (NEB) 0.5MG/2ML AMP HHN SCH ×2 (09:16→19:10)
[2018-06-16] MEDS: metFORMIN 500 MG TAB PO SCH ×2 (09:19→17:44)
[2018-06-16] MEDS: glipiZIDE 5 MG TAB PO SCH ×2 (09:19→17:45)
[2018-06-16] MEDS: INSULIN ASPART [NOVOLOG] 3 ML PEN SC SCH ×4 (09:23→21:08)
[2018-06-16] MEDS: LISINOPRIL 5 MG TAB PO SCH (09:26)
--- NOTE | 2018-06-16 11:20 | RADRPT ---
Echocardiogram Report Patient Name: Aretha BOBOtient ID: [id number] : [id number] (62y 8m)Study Date: 06/16/2018 8:14:24 AM Gender: MAccession #: [id number] Tech: Cherelle Andres [facility] Location: [facility] Ref.Physician: EMILY FRANKLIN Height(Cm): BSA: Weight(Kg): Quality: AdequateAccount #: Procedures: Echocardiographic Report: Transthoracic echocardiogram with complete 2D, M-Mode, and doppler examination. Indications: Congestive Heart Failure. Measurements: 2D/M Mode Doppler Measurement Value Normal Range Measurement Value Normal Range LVIDd 2D 4.2 [ 4.2 - 5.8 ] cm AV Peak Jeff 1.3 [ 100.0 - 170.0 ] cm/sec LVIDs 2D 2.4 [ 2.5 - 4.0 ] cm AV Peak PG 7.0 [ 2.0 - 9.0 ] mmHg LVPWd 2D 1.5 [ 0.6 - 1.0 ] cm LVOT Peak Jeff 1.1 [ 70.0 - 110.0 ] cm/sec IVSd 2D 1.6 [ 0.6 - 1.0 ] cm LVOT Peak PG 5.0 [ 2.0 - 6.0 ] mmHg AoR Diam 2D 2.9 [ 2.6 - 3.4 ] cm MV E Peak Jeff 0.8 [ 60.0 - 130.0 ] cm/sec EDV 2D 79.5 [ 62.0 - 150.0 ] ml MV A Peak Jeff 0.7 [ 100.0 - 120.0 ] cm/sec ESV 2D 20.0 [ 21.0 - 61.0 ] ml MV E/A 1.2 [ 0.8 - 1.5 ] ratio EF 2D 74.8 [ 52.0 - 72.0 ] percent MV Decel Time 197 [ 104 - 258 ] msec LA Dimen 2D 3.6 [ 3.0 - 4.0 ] cm Lat E` Jeff 0.1 [ 10.0 - 15.0 ] cm/sec Lateral E/E` 10.7 [ 1.0 - 2.0 ] ratio MV E/A 1.2 [ 0.8 - 1.5 ] ratio TR Peak Jeff 1.6 [ 100.0 - 280.0 ] cm/sec TR Peak PG 10.0 mmHg RVSP 18.0 [ 10.0 - 36.0 ] mmHg RA Pressure 8.0 mmHg Findings: Left Ventricle: Normal left ventricular systolic function. Normal left ventricular cavity size. Moderate concentric left ventricular hypertrophy. Ejection fraction is visually estimated at 65 %. Tissue Doppler/Mitral Doppler indices are consistent with pseudonormalization with mildly elevated left atrial pressure (Stage II diastolic dysfunction). Right Ventricle: Normal right ventricular size. Normal right ventricular systolic function. Left Atrium: The left atrium is normal in size. Right Atrium: The right atrium is normal in size. Mitral Valve: Normal appearance and function of the mitral valve with trace physiologic regurgitation. Aortic Valve: Normal appearance of the aortic valve. No significant aortic stenosis or insufficiency. Tricuspid Valve: Normal appearance of the tricuspid valve. Estimated peak PA systolic pressure 18 mmHg. There is trace tricuspid regurgitation. Pulmonic Valve: Normal pulmonic valve appearance. Pericardium: Normal pericardium with no significant pericardial effusion. Aorta: Normal aortic root. IVC: Dilated IVC with respiratory collapse consistent with elevated right atrial pressure. Conclusions: Normal left ventricular systolic function. Normal left ventricular cavity size. Moderate concentric left ventricular hypertrophy. Ejection fraction is visually estimated at 65 %. Tissue Doppler/Mitral Doppler indices are consistent with pseudonormalization with mildly elevated left atrial pressure (Stage II diastolic dysfunction). Normal right ventricular size. Normal right ventricular systolic function. The left atrium is normal in size. The right atrium is normal in size. No significant valvular stenosis or regurgitation seen. Normal pericardium with no significant pericardial effusion. Electronically Signed By: Harsha Mcgrath 2018-06-16 11:19:54 PDT
--- NOTE | 2018-06-16 11:32 | PN ---
Date/Time of Note Date/Time of Note DATE: 06/16/18 TIME: 11:29 Objective Vitals Vital Signs Date Temp Pulse Resp B/P (MAP) Pulse Ox O2 O2 Flow FiO2 Time Delivery Rate 06/16/18 97 3.0 09:40 06/16/18 62 22 137/67 09:15 (90) 06/16/18 Nasal 09:05 Cannula 06/16/18 97.6 07:43 Intake and Output 06/15/18 06/15/18 06/16/18 1515:00 23:00 07:00 IntakeIntake Total 730 ml OutputOutput Total 450 ml 1225 ml 700 ml BalanceBalance -450 ml -1225 ml 30 ml Results Result Diagram: 06/16/18 0423 06/16/18 0423 Medications Medications Current Medications Diphenhydramine HCl (Benadryl) 25 mg PACU ORDER PRN IV .PRURITUS; Start 06/14/18 at 08:30 Miscellaneous Information (* Miscellaneous Pharmacy Order) DURAMORPH: 0.1 MG SPI... GIVEN NEURAXIAL XX ; Start 06/14/18 at 08:30 IV Flush (NS 3 ml) 3 ml PER PROTOCOL IV ; Start 06/14/18 at 10:00 Ketorolac Tromethamine (Toradol) 15 mg Q6H PRN IV .PAIN Last administered on 06/15/18at 23:48; Admin Dose 15 MG; Start 06/14/18 at 10:00 Celecoxib (Celebrex) 100 mg BID PO Last administered on 06/16/18at 07:55; Admin Dose 100 MG; Start 06/15/18 at 09:00 Gabapentin (Neurontin) 100 mg TID PO Last administered on 06/16/18at 07:59; Admin Dose 100 MG; Start 06/14/18 at 13:00 Pantoprazole (Protonix Tab) 40 mg DAILY@06 PO Last administered on 06/16/18at 05:59; Admin Dose 40 MG; Start 06/16/18 at 06:00 Naloxone HCl (Narcan) 0.2 mg Q2M PRN IV .RESP RATE; Start 06/14/18 at 10:00 Aspirin (Halfprin) 81 mg BID PO Last administered on 06/16/18at 07:58; Admin Dose 81 MG; Start 06/15/18 at 09:00 Acetaminophen/ Hydrocodone Bitart ([place] (5/325)) 2 tab Q6H PRN PO MODERATE PAIN LEVEL 4-6 Last administered on 06/16/18 05:59; Admin Dose 2 TAB; Start 06/14/18 at 10:00 Atorvastatin Calcium (Lipitor) 10 mg QHS PO Last administered on 06/15/18 20:30; Admin Dose 10 MG; Start 06/14/18 at 21:00 Carvedilol (Coreg) 25 mg BID PO Last administered on 06/15/18 20:31; Admin Dose 25 MG; Start 06/14/18 at 21:00 Glipizide (Glucotrol) 5 mg WITH BREAKFAST DINNE PO Last administered on 09:19; Admin Dose 5 MG; Start 06/14/18 at 17:55 Diagnostic Test (Pha) (Accu-Chek) 1 ea 02 XX Last administered on 06/15/18 03:10; Admin Dose 1 EA; Start 06/15/18 at 02:00 Insulin Aspart (Novolog Insulin Pen) NOVOLOG *MILD* ALGORITHM WITH MEALS BEDTIME SC Last administered on 06/16/18 09:23; Admin Dose 1 UNIT; Start 06/14/18 at 11:40 Insulin Glargine (Lantus) 30 units QHS SC Last administered on 06/15/18 20:35; Admin Dose 30 UNITS; Start 06/14/18 at 22:00 Metformin HCl (Glucophage) 1,000 mg BID WITH MEALS PO Last administered on 06/16/18 09:19; Admin Dose 1,000 MG; Start 06/15/18 at 17:55 Albuterol/ Ipratropium (Duoneb) 3 ml Q6HWA RESP THERAPY HHN Last administered on 06/16/18 09:05; Admin Dose 3 ML; Start 06/15/18 at 20:00 Albuterol/ Ipratropium (Duoneb) 3 ml Q2H RESP THERAPY PRN HHN shortness of breath; Start 06/15/18 at 14:30 Budesonide (Pulmicort (Neb)) 0.5 mg BID RESP THERAPY HHN Last administered on 06/16/18 09:16; Admin Dose 0.5 MG; Start 06/15/18 at 14:30 Hydralazine HCl (Apresoline) 10 mg Q4H PRN IV sbp >160; Start 06/16/18 at 08:00 Lisinopril (Zestril) 5 mg DAILY PO Last administered on 06/16/18at 09:26; Admin Dose 5 MG; Start 06/16/18 at 09:00 VTE Prophylaxis Risk score (from Ns)>0 risk: 11 SCD applied (from [facility]): Yes Lines/Catheters IV Catheter Type: Bernal in Place: No Assessment/Plan Hospital Course Subjective Patient doing well however not able to titrate off nasal cannula at this time. Objective Physical exam General: Patient is laying in bed and answers questions appropriately Mentation: Patient is alert and oriented 4, Head: Normocephalic atraumatic Eyes: EOMI, pupils reactive to light Neck: Supple, nontender, midline Respiratory: Clear to auscultation bilaterally Cardiovascular: regular rate, no obvious murmurs Gastrointestinal: non-tender to palpation, bowel sounds heard. 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 Dyslipidemia -Continue home meds Disposition -We will discharge once titrating off nasal cannula. EMILY FRANKLIN June 16, 2018 11:32
--- NOTE | 2018-06-16 13:27 | CONS ---
Assessment/Plan Cardiology NYHA: II Heart Failure Type: Acute Heart Failure Type: Diastolic Assessment/Plan Hospital Course (Demo Recall) Acute decompensated diastolic congestive heart failure Preserved ejection fraction Left ventricular hypertrophy Status post knee surgery Hypertension Diabetes -Patient with postoperative cough, hypoxia and chest x-ray and exam consistent w ith volume overload -He is improved with IV Lasix, will give an additional dose this afternoon and s witch to p.o. Lasix from tomorrow -Continue blood pressure control Consultation Date/Type/Reason Admit Date/Time June 14, 2018 at 05:40 Type of Consult Cardiology Reason for Consultation Shortness of breath Date/Time of Note DATE: 06/16/18 TIME: 13:23 Hx of Present Illness This is a 62-year-old male with past medical history of hypertension who underwent elective knee surgery. Postoperatively, patient with cough, hypoxia. He denies shortness of breath. Denies chest pain. Patient with presumed volume overload and for this reason cardiology consultation was requested. Denies any prior history of congestive heart failure. He tells me he did have preoperative cardiac evaluation performed including stress test and echocardiogram and he was "cleared" for surgery. He was given Lasix today and his cough is improved. Denies any abdominal pain, nausea. 12 point review of systems was performed with all pertinent positives and negatives mentioned above and all else is negative Past Medical History Medical History: diabetes, high cholesterol, hypertension Home Meds Reported Medications Insulin Glargine,Hum.rec.anlog (Chaunceyaglar Nattypen U-100) 100 Unit/1 Ml Insuln.pen, 30 UNIT SC QHS, EA 06/14/18 Glipizide* (Glipizide*) 5 Mg Tablet, 5 MG PO BID, TAB 06/14/18 Carvedilol* (Carvedilol*) 25 Mg Tablet, 25 MG PO BID, #60 TAB 06/14/18 Atorvastatin Calcium (Atorvastatin Calcium) 10 Mg Tablet, 10 MG PO QHS, #30 TAB 06/14/18 Aspirin (Low Dose Aspirin) 81 Mg Tablet.dr, 81 MG PO DAILY, #30 TAB 06/14/18 Metformin* (Glucophage*) 1,000 Mg Tablet, 1000 MG PO BID, #60 TAB 11/08/17 Discontinued Reported Medications Ciprofloxacin Hcl* (Ciprofloxacin Hcl*) 500 Mg Tablet, 500 MG PO BID, #14 TAB STARTED 11-03-17 FOR 7 DAYS 11/08/17 Losartan Potassium* (Losartan Potassium*) 50 Mg Tablet, 50 MG PO BID, TAB 11/08/17 Glyburide* (Glyburide*) 5 Mg Tablet, 5 MG PO BID, #60 TAB 11/08/17 Medications Current Medications Diphenhydramine HCl (Benadryl) 25 mg PACU ORDER PRN IV .PRURITUS; Start 06/14/18 at 08:30 Miscellaneous Information (* Miscellaneous Pharmacy Order) DURAMORPH: 0.1 MG SPI... GIVEN NEURAXIAL XX ; Start 06/14/18 at 08:30 IV Flush (NS 3 ml) 3 ml PER PROTOCOL IV ; Start 06/14/18 at 10:00 Ketorolac Tromethamine (Toradol) 15 mg Q6H PRN IV .PAIN Last administered on 06/15/18at 23:48; Admin Dose 15 MG; Start 06/14/18 at 10:00 Celecoxib (Celebrex) 100 mg BID PO Last administered on 06/16/18at 07:55; Admin Dose 100 MG; Start 06/15/18 at 09:00 Gabapentin (Neurontin) 100 mg TID PO Last administered on 06/16/18at 12:41; Admin Dose 100 MG; Start 06/14/18 at 13:00 Pantoprazole (Protonix Tab) 40 mg DAILY@06 PO Last administered on 06/16/18at 05:59; Admin Dose 40 MG; Start 06/16/18 at 06:00 Naloxone HCl (Narcan) 0.2 mg Q2M PRN IV .RESP RATE; Start 06/14/18 at 10:00 Aspirin (Halfprin) 81 mg BID PO Last administered on 06/16/18at 07:58; Admin Dose 81 MG; Start 06/15/18 at 09:00 Acetaminophen/ Hydrocodone Bitart ([place] (5/325)) 2 tab Q6H PRN PO MODERATE PAIN LEVEL 4-6 Last administered on 06/16/18at 05:59; Admin Dose 2 TAB; Start 06/14/18 at 10:00 Atorvastatin Calcium (Lipitor) 10 mg QHS PO Last administered on 06/15/18at 20:30; Admin Dose 10 MG; Start 06/14/18 at 21:00 Carvedilol (Coreg) 25 mg BID PO Last administered on 06/15/18 20:31; Admin Dose 25 MG; Start 06/14/18 at 21:00 Glipizide (Glucotrol) 5 mg WITH BREAKFAST DINNE PO Last administered on 06/16/18 09:19; Admin Dose 5 MG; Start 06/14/18 at 17:55 Diagnostic Test (Pha) (Accu-Chek) 1 ea 02 XX Last administered on 06/15/18 03:10; Admin Dose 1 EA; Start 06/15/18 at 02:00 Insulin Aspart (Novolog Insulin Pen) NOVOLOG *MILD* ALGORITHM WITH MEALS BEDTIME SC Last administered on 06/16/18 12:44; Admin Dose 2 UNIT; Start 06/14/18 at 11:40 Insulin Glargine (Lantus) 30 units QHS SC Last administered on 06/15/18 20:35; Admin Dose 30 UNITS; Start 06/14/18 at 22:00 Metformin HCl (Glucophage) 1,000 mg BID WITH MEALS PO Last administered on 06/16/18 09:19; Admin Dose 1,000 MG; Start 06/15/18 at 17:55 Albuterol/ Ipratropium (Duoneb) 3 ml Q6HWA RESP THERAPY HHN Last administered on 06/16/18 13:16; Admin Dose 3 ML; Start 06/15/18 at 20:00 Albuterol/ Ipratropium (Duoneb) 3 ml Q2H RESP THERAPY PRN HHN shortness of breath; Start 06/15/18 at 14:30 Budesonide (Pulmicort (Neb)) 0.5 mg BID RESP THERAPY HHN Last administered on 06/16/18 09:16; Admin Dose 0.5 MG; Start 06/15/18 at 14:30 Hydralazine HCl (Apresoline) 10 mg Q4H PRN IV sbp >160; Start 06/16/18 at 08:00 Lisinopril (Zestril) 5 mg DAILY PO Last administered on 06/16/18 09:26; Admin Dose 5 MG; Start 06/16/18 at 09:00 Allergies: Coded Allergies: No Known Allergy (Unverified , 06/14/18) Past Surgical History Past Surgical Hx: other (Multiple orthopedic surgeries) Social History Alcohol Use: sober Smoking Status: Former smoker Exam/Review of Systems Vital Signs Vitals Vital Signs Date Temp Pulse Resp B/P (MAP) Pulse Ox O2 O2 Flow FiO2 Time Delivery Rate 06/16/18 71 18 97 Nasal 2.0 13:16 Cannula 06/16/18 137/67 09:15 (90) 06/16/18 97.6 07:43 Intake and Output 06/15/18 06/15/18 06/16/18 1515:00 23:00 07:00 IntakeIntake Total 730 ml OutputOutput Total 450 ml 1225 ml 700 ml BalanceBalance -450 ml -1225 ml 30 ml Exam Constitutional: alert, oriented, other (Obesity, no dyspnea with speaking) Head: normocephalic Respiratory: other (Coarse breath sounds bilaterally, no wheezing) Cardiovascular: regular rate and rhythm, other (S1-S2 heard) Gastrointestinal: soft, non-tender, bowel sounds Extremities: other (Bandage lower extremity) Labs Result Diagram: 06/16/18 0423 06/16/18 0423 Results 24hrs Laboratory Tests Test 06/15/18 15:00 06/15/18 17:48 06/15/18 20:33 06/16/18 02:21 Blood Gas Blood arterial Specimen Source Arterial Blood 06/15/2018 3:55:15 Date Drawn PM Arterial Blood pH 7.465 H (Temp corrected) Arterial Blood 36.9 pCO2 (Temp correct) Arterial Blood 110.3 H pO2 (Temp corrected) Arterial Blood 26.0 HCO3 Arterial Blood 2.3 Base Excess Arterial Blood 98.2 H Oxygen Saturation Gus Test ACCEPTAB Arterial Blood Right Radial Gas Puncture Site Arterial 0.3 Blood Carboxyhemo globin Arterial Blood 0.3 Methemoglobin Blood Gas A-a O2 81.9 H Differential Oxyhemoglobin 97.6 Percent Blood Gas 37.0 Temperature Blood Gas NASAL CANNULA Modality FiO2 33.0 Blood Gas DT Notified Whom Blood Gas 06/15/2018 4:01:34 Notified Time PM Bedside Glucose 319 H 294 H 181 Test 06/16/18 04:23 06/16/18 09:15 06/16/18 12:33 White Blood Count 13.6 H Red Blood Count 4.19 L Hemoglobin 12.4 L Hematocrit 38.0 L Mean Corpuscular 90.7 Volume Mean Corpuscular 29.6 Hemoglobin Mean Corpuscular 32.6 Hemoglobin Concen t Red Cell 13.2 Distribution Width Platelet Count 199 Mean Platelet 10.4 Volume Immature 0.600 H Granulocytes % Neutrophils % 63.4 Lymphocytes % 23.3 Monocytes % 10.8 Eosinophils % 1.5 Basophils % 0.4 Nucleated Red 0.0 Blood Cells % Immature 0.080 H Granulocytes # Neutrophils # 8.6 H Lymphocytes # 3.2 H Monocytes # 1.5 H Eosinophils # 0.2 Basophils # 0.1 Nucleated Red 0.0 Blood Cells # Sodium Level 141 Potassium Level 4.4 Chloride Level 106 Carbon Dioxide 27 Level Anion Gap 8 Blood Urea 19 Nitrogen Creatinine 0.81 Est Glomerular > 60 Filtrat Rate mL/min Glucose Level 182 # Calcium Level 8.8 B-Type 201 H Natriuretic Peptide Bedside Glucose 158 217 Imaging Imaging ECG demonstrates sinus rhythm, left anterior fascicular block, right bundle branch block, QRS 154 ms, nonspecific ST abnormalities. ECG dated 06/08/2018 Medications Medications Current Medications Diphenhydramine HCl (Benadryl) 25 mg PACU ORDER PRN IV .PRURITUS; Start 06/14/18 at 08:30 Miscellaneous Information (* Miscellaneous Pharmacy Order) DURAMORPH: 0.1 MG SPI... GIVEN NEURAXIAL XX ; Start 06/14/18 at 08:30 IV Flush (NS 3 ml) 3 ml PER PROTOCOL IV ; Start 06/14/18 at 10:00 Ketorolac Tromethamine (Toradol) 15 mg Q6H PRN IV .PAIN Last administered on 06/15/18at 23:48; Admin Dose 15 MG; Start 06/14/18 at 10:00 Celecoxib (Celebrex) 100 mg BID PO Last administered on 06/16/18at 07:55; Admin Dose 100 MG; Start 06/15/18 at 09:00 Gabapentin (Neurontin) 100 mg TID PO Last administered on 06/16/18at 12:41; Admin Dose 100 MG; Start 06/14/18 at 13:00 Pantoprazole (Protonix Tab) 40 mg DAILY@06 PO Last administered on 06/16/18at 05:59; Admin Dose 40 MG; Start 06/16/18 at 06:00 Naloxone HCl (Narcan) 0.2 mg Q2M PRN IV .RESP RATE; Start 06/14/18 at 10:00 Aspirin (Halfprin) 81 mg BID PO Last administered on 06/16/18 07:58; Admin Dose 81 MG; Start 06/15/18 at 09:00 Acetaminophen/ Hydrocodone Bitart ([place] (5/325)) 2 tab Q6H PRN PO MODERATE PAIN LEVEL 4-6 Last administered on 06/16/18 05:59; Admin Dose 2 TAB; Start 06/14/18 at 10:00 Atorvastatin Calcium (Lipitor) 10 mg QHS PO Last administered on 06/15/18 20:30; Admin Dose 10 MG; Start 06/14/18 at 21:00 Carvedilol (Coreg) 25 mg BID PO Last administered on 06/15/18 20:31; Admin Dose 25 MG; Start 06/14/18 at 21:00 Glipizide (Glucotrol) 5 mg WITH BREAKFAST DINNE PO Last administered on 06/16/18 09:19; Admin Dose 5 MG; Start 06/14/18 at 17:55 Diagnostic Test (Pha) (Accu-Chek) 1 ea 02 XX Last administered on 06/15/18 03: 10; Admin Dose 1 EA; Start 06/15/18 at 02:00 Insulin Aspart (Novolog Insulin Pen) NOVOLOG *MILD* ALGORITHM WITH MEALS BEDTIME SC Last administered on 06/16/18 12:44; Admin Dose 2 UNIT; Start 06/14/18 at 11:40 Insulin Glargine (Lantus) 30 units QHS SC Last administered on 06/15/18 20:35; Admin Dose 30 UNITS; Start 06/14/18 at 22:00 Metformin HCl (Glucophage) 1,000 mg BID WITH MEALS PO Last administered on 06/16/18 09:19; Admin Dose 1,000 MG; Start 06/15/18 at 17:55 Albuterol/ Ipratropium (Duoneb) 3 ml Q6HWA RESP THERAPY HHN Last administered on 06/16/18 13:16; Admin Dose 3 ML; Start 06/15/18 at 20:00 Albuterol/ Ipratropium (Duoneb) 3 ml Q2H RESP THERAPY PRN HHN shortness of breath; Start 06/15/18 at 14:30 Budesonide (Pulmicort (Neb)) 0.5 mg BID RESP THERAPY HHN Last administered on 06/16/18at 09:16; Admin Dose 0.5 MG; Start 06/15/18 at 14:30 Hydralazine HCl (Apresoline) 10 mg Q4H PRN IV sbp >160; Start 06/16/18 at 08:00 Lisinopril (Zestril) 5 mg DAILY PO Last administered on 06/16/18at 09:26; Admin Dose 5 MG; Start 06/16/18 at 09:00 Harsha Mcgrath DO June 16, 2018 13:27
[2018-06-16 13:40] VITALS: BP 128/54; PULSE 73; RESP 18
[2018-06-16] MEDS: KETOROLAC 15 MG INJ IV PRN ×2 (15:50→23:51)
[2018-06-16] MEDS ORDERED: FUROSEMIDE 40 MG INJ IV ONE (16:00)
[2018-06-16 19:35] VITALS: BP 122/59; PULSE 83; RESP 18
[2018-06-16] MEDS: ATORVASTATIN 10 MG TAB PO SCH (20:56)
[2018-06-16] MEDS: INSULIN GLARGINE [LANTus] (100 UNITS/ML) SYG SC SCH (21:06)
[2018-06-17] MEDS: ACCU-CHEK XX SCH (02:00)
[2018-06-17 02:25] VITALS: BP 138/61; PULSE 77; RESP 18
[2018-06-17] MEDS: HYDROCODONE/APAP (5/325) TAB PO PRN ×2 (03:33→15:14)
[2018-06-17] MEDS: PANTOPRAZOLE (EC) 40 MG TAB PO SCH (05:27)
[2018-06-17 07:12] VITALS: BP 113/53; PULSE 68; RESP 15
[2018-06-17] MEDS: INSULIN ASPART [NOVOLOG] 3 ML PEN SC SCH ×4 (08:37→20:51)
[2018-06-17] MEDS: LISINOPRIL 5 MG TAB PO SCH (08:39)
[2018-06-17] MEDS: metFORMIN 500 MG TAB PO SCH ×2 (08:39→17:58)
[2018-06-17] MEDS: glipiZIDE 5 MG TAB PO SCH ×2 (08:40→17:59)
[2018-06-17] MEDS: FUROSEMIDE 40 MG TAB PO SCH (08:40)
[2018-06-17] MEDS: CELECOXIB 100 MG CAP PO SCH ×2 (08:40→20:48)
[2018-06-17] MEDS: GABAPENTIN 100 MG CAP PO SCH ×3 (08:40→20:48)
[2018-06-17] MEDS: ASPIRIN (EC) 81 MG TAB PO SCH ×2 (08:45→20:48)
[2018-06-17] MEDS: ALBUTEROL/IPRATROPIUM (NEB) 3 ML AMP HHN SCH ×3 (09:17→20:05)
[2018-06-17] MEDS: BUDESONIDE (NEB) 0.5MG/2ML AMP HHN SCH ×2 (09:17→20:17)
--- NOTE | 2018-06-17 12:47 | CONS ---
Consult Date/Type/Reason Admit Date/Time June 15, 2018 at 14:23 Initial Consult Date Type of Consultation: cv Date/Time of Note DATE: 06/17/18 TIME: 12:36 Subjective Cardiology follow-up progress note Subjective: Discussed with staff. Patient with no chest pain or pressure. Patient has been does hypoxemic and has been tolerating off of the oxygen. Patient denies shortness of breath to me at this point. Patient has not tolerated CPAP overnight and did not use it Objective: General: Obese gentleman in no acute distress HEENT: NC/AT. pupils are equal. round. NECK: . no stridor. CV: RRR. systolic murmur; no gallop or rubs. PULM: no wheezing or rhonchi. GI: SOFT, NT, ND, no rebound or guarding Extremity: Status post left knee surgery. neuro: awake and alert, OX3. Psych: calm and pleasant rectal: deferred Objective Vitals Vital Signs Date Temp Pulse Resp B/P (MAP) Pulse Ox O2 O2 Flow FiO2 Time Delivery Rate 06/17/18 99 1.0 10:02 06/17/18 69 20 Nasal 09:28 Cannula 06/17/18 98.1 113/53 07:12 (73) Intake and Output 06/16/18 06/16/18 06/17/18 1515:00 23:00 07:00 IntakeIntake Total 120 ml OutputOutput Total 400 ml 380 ml 500 ml BalanceBalance -400 ml -260 ml -500 ml Results/Medications Result Diagram: 06/17/18 0439 06/17/18 0439 Results 24 hrs Laboratory Tests Test 06/16/18 17:43 06/16/18 20:55 06/17/18 02:15 06/17/18 04:39 Bedside Glucose 190 191 172 White Blood Count 12.6 H Red Blood Count 4.37 L Hemoglobin 13.0 L Hematocrit 40.4 L Mean Corpuscular 92.4 Volume Mean Corpuscular 29.7 Hemoglobin Mean Corpuscular 32.2 Hemoglobin Concent Red Cell 13.0 Distribution Width Platelet Count 204 Mean Platelet Volume 10.2 Immature 0.500 H Granulocytes % Neutrophils % 61.3 Lymphocytes % 23.6 Monocytes % 10.2 Eosinophils % 4.0 Basophils % 0.4 Nucleated Red Blood 0.0 Cells % Immature 0.060 H Granulocytes # Neutrophils # 7.7 H Lymphocytes # 3.0 H Monocytes # 1.3 H Eosinophils # 0.5 Basophils # 0.1 Nucleated Red Blood 0.0 Cells # Sodium Level 140 Potassium Level 4.1 Chloride Level 100 Carbon Dioxide Level 31 Anion Gap 9 Blood Urea Nitrogen 25 H Creatinine 0.82 Est Glomerular > 60 Filtrat Rate mL/min Glucose Level 193 Calcium Level 8.6 Phosphorus Level 4.8 Magnesium Level 1.8 Test 06/17/18 08:34 Bedside Glucose 214 Home Meds Reported Medications Insulin Glargine,Hum.rec.anlog (Basaglar Kwikpen U-100) 100 Unit/1 Ml Insuln.pen, 30 UNIT SC QHS, EA 06/14/18 Glipizide* (Glipizide*) 5 Mg Tablet, 5 MG PO BID, TAB 06/14/18 Carvedilol* (Carvedilol*) 25 Mg Tablet, 25 MG PO BID, #60 TAB 06/14/18 Atorvastatin Calcium (Atorvastatin Calcium) 10 Mg Tablet, 10 MG PO QHS, #30 TAB 06/14/18 Aspirin (Low Dose Aspirin) 81 Mg Tablet.dr, 81 MG PO DAILY, #30 TAB 06/14/18 Metformin* (Glucophage*) 1,000 Mg Tablet, 1000 MG PO BID, #60 TAB 11/08/17 Discontinued Reported Medications Ciprofloxacin Hcl* (Ciprofloxacin Hcl*) 500 Mg Tablet, 500 MG PO BID, #14 TAB STARTED 11-03-17 FOR 7 DAYS 11/08/17 Losartan Potassium* (Losartan Potassium*) 50 Mg Tablet, 50 MG PO BID, TAB 11/08/17 Glyburide* (Glyburide*) 5 Mg Tablet, 5 MG PO BID, #60 TAB 11/08/17 Medications Current Medications Diphenhydramine HCl (Benadryl) 25 mg PACU ORDER PRN IV .PRURITUS; Start 06/14/18 at 08:30 Miscellaneous Information (* Miscellaneous Pharmacy Order) DURAMORPH: 0.1 MG SPI... GIVEN NEURAXIAL XX ; Start 06/14/18 at 08:30 IV Flush (NS 3 ml) 3 ml PER PROTOCOL IV ; Start 06/14/18 at 10:00 Ketorolac Tromethamine (Toradol) 15 mg Q6H PRN IV .PAIN Last administered on 5/10/19at 23:51; Admin Dose 15 MG; Start 06/14/18 at 10:00 Celecoxib (Celebrex) 100 mg BID PO Last administered on 06/17/18 08:40; Admin Dose 100 MG; Start 06/15/18 at 09:00 Gabapentin (Neurontin) 100 mg TID PO Last administered on 06/17/18 08:40; Admin Dose 100 MG; Start 06/14/18 at 13:00 Pantoprazole (Protonix Tab) 40 mg DAILY@06 PO Last administered on 06/17/18 05:27; Admin Dose 40 MG; Start 06/16/18 at 06:00 Naloxone HCl (Narcan) 0.2 mg Q2M PRN IV .RESP RATE; Start 06/14/18 at 10:00 Aspirin (Halfprin) 81 mg BID PO Last administered on 06/17/18 08:45; Admin Dose 81 MG; Start 06/15/18 at 09:00 Acetaminophen/ Hydrocodone Bitart ([place] (5/325)) 2 tab Q6H PRN PO MODERATE PAIN LEVEL 4-6 Last administered on 06/17/18 03:33; Admin Dose 2 TAB; Start 06/14/18 at 10:00 Atorvastatin Calcium (Lipitor) 10 mg QHS PO Last administered on 06/16/18 20:56; Admin Dose 10 MG; Start 06/14/18 at 21:00 Carvedilol (Coreg) 25 mg BID PO Last administered on 06/16/18 20:57; Admin Dose 25 MG; Start 06/14/18 at 21:00 Glipizide (Glucotrol) 5 mg WITH BREAKFAST DINNE PO Last administered on 06/17/18 08:40; Admin Dose 5 MG; Start 06/14/18 at 17:55 Diagnostic Test (Pha) (Accu-Chek) 1 ea 02 XX Last administered on 06/15/18 03:10; Admin Dose 1 EA; Start 06/15/18 at 02:00 Insulin Aspart (Novolog Insulin Pen) NOVOLOG *MILD* ALGORITHM WITH MEALS BEDTIME SC Last administered on 06/17/18 08:37; Admin Dose 2 UNIT; Start 06/14/18 at 11:40 Insulin Glargine (Lantus) 30 units QHS SC Last administered on 06/16/18 21:06; Admin Dose 30 UNITS; Start 06/14/18 at 22:00 Metformin HCl (Glucophage) 1,000 mg BID WITH MEALS PO Last administered on 06/17/18 08:39; Admin Dose 1,000 MG; Start 06/15/18 at 17:55 Albuterol/ Ipratropium (Duoneb) 3 ml Q6HWA RESP THERAPY HHN Last administered on 06/17/18 09:17; Admin Dose 3 ML; Start 06/15/18 at 20:00 Albuterol/ Ipratropium (Duoneb) 3 ml Q2H RESP THERAPY PRN HHN shortness of breath; Start 06/15/18 at 14:30 Budesonide (Pulmicort (Neb)) 0.5 mg BID RESP THERAPY HHN Last administered on 06/17/18 09:17; Admin Dose 0.5 MG; Start 06/15/18 at 14:30 Hydralazine HCl (Apresoline) 10 mg Q4H PRN IV sbp >160; Start 06/16/18 at 08:00 Lisinopril (Zestril) 5 mg DAILY PO Last administered on 06/17/18 08:39; Admin Dose 5 MG; Start 06/16/18 at 09:00 Furosemide (Lasix) 40 mg DAILY PO Last administered on 06/17/18 08:40; Admin Dose 40 MG; Start 06/17/18 at 09:00 Assessment/Plan Hospital Course (Demo Recall) Dyspnea/hypoxemia: Multifactorial secondary to acute decompensated diastolic congestive heart failure as well as likely sleep apnea patient with Preserved ejection fraction and Left ventricular hypertrophy Status post knee surgery Hypertension Diabetes Morbid obesity and obstructive sleep apnea - Continue with the current cardiac care Advised to use CPAP at nighttime Patient to follow-up with his regular aviation maintenance instructor in outpatient Continue aggressive incentive spirometry DC planning as per primary team DESTIN CORMIER MD June 17, 2018 12:47
--- NOTE | 2018-06-17 14:03 | PN ---
Date/Time of Note Date/Time of Note DATE: 06/17/18 TIME: 14:02 Objective Vitals Vital Signs Date Temp Pulse Resp B/P (MAP) Pulse Ox O2 O2 Flow FiO2 Time Delivery Rate 06/17/18 99 1.0 10:02 06/17/18 69 20 Nasal 09:28 Cannula 06/17/18 98.1 113/53 07:12 (73) Intake and Output 06/16/18 06/16/18 06/17/18 1515:00 23:00 07:00 IntakeIntake Total 120 ml OutputOutput Total 400 ml 380 ml 500 ml BalanceBalance -400 ml -260 ml -500 ml Results Result Diagram: 06/17/18 0439 06/17/18 0439 Medications Medications Current Medications Diphenhydramine HCl (Benadryl) 25 mg PACU ORDER PRN IV .PRURITUS; Start 06/14/18 at 08:30 Miscellaneous Information (* Miscellaneous Pharmacy Order) DURAMORPH: 0.1 MG SP I... GIVEN NEURAXIAL XX ; Start 06/14/18 at 08:30 IV Flush (NS 3 ml) 3 ml PER PROTOCOL IV ; Start 06/14/18 at 10:00 Ketorolac Tromethamine (Toradol) 15 mg Q6H PRN IV .PAIN Last administered on 06/16/18at 23:51; Admin Dose 15 MG; Start 06/14/18 at 10:00 Celecoxib (Celebrex) 100 mg BID PO Last administered on 06/17/18at 08:40; Admin Dose 100 MG; Start 06/15/18 at 09:00 Gabapentin (Neurontin) 100 mg TID PO Last administered on 06/17/18at 13:05; Admin Dose 100 MG; Start 06/14/18 at 13:00 Pantoprazole (Protonix Tab) 40 mg DAILY@06 PO Last administered on 06/17/18at 05:27; Admin Dose 40 MG; Start 06/16/18 at 06:00 Naloxone HCl (Narcan) 0.2 mg Q2M PRN IV .RESP RATE; Start 06/14/18 at 10:00 Aspirin (Halfprin) 81 mg BID PO Last administered on 06/17/18at 08:45; Admin Dose 81 MG; Start 06/15/18 at 09:00 Acetaminophen/ Hydrocodone Bitart ([place] (5/325)) 2 tab Q6H PRN PO MODERATE PAIN LEVEL 4-6 Last administered on 06/17/18 03:33; Admin Dose 2 TAB; Start 06/14/18 at 10:00 Atorvastatin Calcium (Lipitor) 10 mg QHS PO Last administered on 06/16/18 20:56; Admin Dose 10 MG; Start 06/14/18 at 21:00 Carvedilol (Coreg) 25 mg BID PO Last administered on 06/16/18 20:57; Admin Dose 25 MG; Start 06/14/18 at 21:00 Glipizide (Glucotrol) 5 mg WITH BREAKFAST DINNE PO Last administered on 06/17/18 08:40; Admin Dose 5 MG; Start 06/14/18 at 17:55 Diagnostic Test (Pha) (Accu-Chek) 1 ea 02 XX Last administered on 06/15/18 03:10; Admin Dose 1 EA; Start 06/15/18 at 02:00 Insulin Aspart (Novolog Insulin Pen) NOVOLOG *MILD* ALGORITHM WITH MEALS BEDTIME SC Last administered on 06/17/18 13:13; Admin Dose 3 UNIT; Start 06/14/18 at 11:40 Metformin HCl (Glucophage) 1,000 mg BID WITH MEALS PO Last administered on 06/17/18 08:39; Admin Dose 1,000 MG; Start 06/15/18 at 17:55 Albuterol/ Ipratropium (Duoneb) 3 ml Q6HWA RESP THERAPY HHN Last administered on 06/17/18 09:17; Admin Dose 3 ML; Start 06/15/18 at 20:00 Albuterol/ Ipratropium (Duoneb) 3 ml Q2H RESP THERAPY PRN HHN shortness of breath; Start 06/15/18 at 14:30 Budesonide (Pulmicort (Neb)) 0.5 mg BID RESP THERAPY HHN Last administered on 06/17/18 09:17; Admin Dose 0.5 MG; Start 06/15/18 at 14:30 Hydralazine HCl (Apresoline) 10 mg Q4H PRN IV sbp >160; Start 06/16/18 at 08:00 Lisinopril (Zestril) 5 mg DAILY PO Last administered on 5/11/19at 08:39; Admin Dose 5 MG; Start 06/16/18 at 09:00 Furosemide (Lasix) 40 mg DAILY PO Last administered on 06/17/18at 08:40; Admin Dose 40 MG; Start 06/17/18 at 09:00 Insulin Glargine (Lantus) 35 units QHS SC ; Start 06/17/18 at 21:00 VTE Prophylaxis Risk score (from Ns)>0 risk: 14 SCD applied (from [facility] [place]): Yes Lines/Catheters IV Catheter Type: Bernal in Place: No Assessment/Plan Hospital Course Subjective Patient doing well however not able to titrate off nasal cannula at this time. Objective Physical exam General: Patient is laying in bed and answers questions appropriately Mentation: Patient is alert and oriented 4, Head: Normocephalic atraumatic Eyes: EOMI, pupils reactive to light Neck: Supple, nontender, midline Respiratory: Clear to auscultation bilaterally Cardiovascular: regular rate, no obvious murmurs Gastrointestinal: non-tender to palpation, bowel sounds heard. Neurological: Moves all extremities spontaneously, left leg motion reduced due to bandage Skin: Surgical site bandaged, CDI Assessment and plan Acute hypoxic respiratory distress -Patient desaturates without nasal cannula -Chest x-ray showing pulmonary edema -BNP mildly elevated -Echocardiogram showing stage II diastolic dysfunction, cardiology has been consulted -IV Lasix given x1 Pulmonary edema -Possibly due to diastolic dysfunction, cardiology consulted -IV Lasix x1 given Total left knee arthroplasty secondary to osteo-arthritis -Orthopedic surgery to manage -Pain control -Monitor Hypertension -Continue home meds -Add lisinopril Diabetes mellitus -Continue home Lantus, insulin sliding scale, -Sugars elevated overnight however did not restart patient on his oral medications, was waiting for morning labs, now within normal limits -Restart home meds -According to daughter and patient patient's blood sugars are well controlled with current regimen at home, may continue current regimen with minimal changes when discharged. Dyslipidemia -Continue home meds Disposition -We will discharge once titrating off nasal cannula. -We will also need to arrange CPAP as patient desaturates into the 70s overnight before discharge EMILY FRANKLIN June 17, 2018 14:03
[2018-06-17 14:12] VITALS: BP 105/52; PULSE 73; RESP 14
[2018-06-17] MEDS: KETOROLAC 15 MG INJ IV PRN (18:09)
[2018-06-17 20:15] VITALS: BP 106/52; PULSE 77; RESP 20
[2018-06-17] MEDS: ATORVASTATIN 10 MG TAB PO SCH (20:48)
[2018-06-17] MEDS: INSULIN GLARGINE [LANTus] (100 UNITS/ML) SYG SC SCH (20:50)
[2018-06-18] MEDS: ACCU-CHEK XX SCH (01:58)
[2018-06-18 02:54] VITALS: BP 105/58; PULSE 75; RESP 20
[2018-06-18] MEDS: PANTOPRAZOLE (EC) 40 MG TAB PO SCH (05:21)
[2018-06-18 07:31] VITALS: BP 109/56; PULSE 72; RESP 15
[2018-06-18] MEDS: GABAPENTIN 100 MG CAP PO SCH ×3 (08:25→21:02)
[2018-06-18] MEDS: CELECOXIB 100 MG CAP PO SCH ×2 (08:25→21:02)
[2018-06-18] MEDS: ASPIRIN (EC) 81 MG TAB PO SCH ×2 (08:25→21:01)
[2018-06-18] MEDS: FUROSEMIDE 40 MG TAB PO SCH (08:26)
[2018-06-18] MEDS: metFORMIN 500 MG TAB PO SCH ×2 (08:27→18:00)
[2018-06-18] MEDS: LISINOPRIL 5 MG TAB PO SCH ×2 (08:28→09:00)
[2018-06-18] MEDS: glipiZIDE 5 MG TAB PO SCH ×2 (08:31→18:00)
[2018-06-18] MEDS: INSULIN ASPART [NOVOLOG] 3 ML PEN SC SCH ×4 (08:35→20:54)
[2018-06-18] MEDS: ALBUTEROL/IPRATROPIUM (NEB) 3 ML AMP HHN SCH ×3 (09:29→19:38)
[2018-06-18] MEDS: BUDESONIDE (NEB) 0.5MG/2ML AMP HHN SCH ×2 (09:29→19:38)
--- NOTE | 2018-06-18 11:53 | PN ---
Date/Time of Note Date/Time of Note DATE: 06/18/18 TIME: 11:51 Objective Vitals Vital Signs Date Temp Pulse Resp B/P (MAP) Pulse Ox O2 O2 Flow FiO2 Time Delivery Rate 06/18/18 Nasal 4.0 08:00 Cannula 06/18/18 98.2 72 15 109/56 100 07:31 (73) Intake and Output 06/17/18 06/17/18 06/18/18 1515:00 23:00 07:00 IntakeIntake Total 700 ml 420 ml 60 ml OutputOutput Total 600 ml 280 ml BalanceBalance 100 ml 420 ml -220 ml Results Result Diagram: 06/18/18 0452 06/18/18 0452 Medications Medications Current Medications Diphenhydramine HCl (Benadryl) 25 mg PACU ORDER PRN IV .PRURITUS; Start 06/14/18 at 08:30 Miscellaneous Information (* Miscellaneous Pharmacy Order) DURAMORPH: 0.1 MG SPI... GIVEN NEURAXIAL XX ; Start 06/14/18 at 08:30 IV Flush (NS 3 ml) 3 ml PER PROTOCOL IV ; Start 06/14/18 at 10:00 Ketorolac Tromethamine (Toradol) 15 mg Q6H PRN IV .PAIN Last administered on 06/17/18at 18:09; Admin Dose 15 MG; Start 06/14/18 at 10:00 Celecoxib (Celebrex) 100 mg BID PO Last administered on 06/18/18at 08:25; Admin Dose 100 MG; Start 06/15/18 at 09:00 Gabapentin (Neurontin) 100 mg TID PO Last administered on 06/18/18at 08:25; Admin Dose 100 MG; Start 06/14/18 at 13:00 Pantoprazole (Protonix Tab) 40 mg DAILY@06 PO Last administered on 06/18/18at 05:21; Admin Dose 40 MG; Start 06/16/18 at 06:00 Naloxone HCl (Narcan) 0.2 mg Q2M PRN IV .RESP RATE; Start 06/14/18 at 10:00 Aspirin (Halfprin) 81 mg BID PO Last administered on 06/18/18at 08:25; Admin Dose 81 MG; Start 06/15/18 at 09:00 Acetaminophen/ Hydrocodone Bitart ([place] (5/325)) 2 tab Q6H PRN PO MODERATE PAIN LEVEL 4-6 Last administered on 06/17/18 15:14; Admin Dose 2 TAB; Start 06/14/18 at 10:00 Atorvastatin Calcium (Lipitor) 10 mg QHS PO Last administered on 06/17/18 20:48; Admin Dose 10 MG; Start 06/14/18 at 21:00 Carvedilol (Coreg) 25 mg BID PO Last administered on 06/16/18 20:57; Admin Dose 25 MG; Start 06/14/18 at 21:00 Glipizide (Glucotrol) 5 mg WITH BREAKFAST DINNE PO Last administered on 06/18/18 08:31; Admin Dose 5 MG; Start 06/14/18 at 17:55 Diagnostic Test (Pha) (Accu-Chek) 1 ea 02 XX Last administered on 06/15/18 03:10; Admin Dose 1 EA; Start 06/15/18 at 02:00 Insulin Aspart (Novolog Insulin Pen) NOVOLOG *MILD* ALGORITHM WITH MEALS BEDTIME SC Last administered on 06/18/18 08:35; Admin Dose 1 UNIT; Start 06/14/18 at 11:40 Metformin HCl (Glucophage) 1,000 mg BID WITH MEALS PO Last administered on 06/18/18 08:27; Admin Dose 1,000 MG; Start 06/15/18 at 17:55 Albuterol/ Ipratropium (Duoneb) 3 ml Q6HWA RESP THERAPY HHN Last administered on 06/18/18 09:29; Admin Dose 3 ML; Start 06/15/18 at 20:00 Albuterol/ Ipratropium (Duoneb) 3 ml Q2H RESP THERAPY PRN HHN shortness of breath; Start 06/15/18 at 14:30 Budesonide (Pulmicort (Neb)) 0.5 mg BID RESP THERAPY HHN Last administered on 06/18/18 09:29; Admin Dose 0.5 MG; Start 06/15/18 at 14:30 Hydralazine HCl (Apresoline) 10 mg Q4H PRN IV sbp >160; Start 06/16/18 at 08:00 Furosemide (Lasix) 40 mg DAILY PO Last administered on 06/18/18 08:26; Admin Dose 40 MG; Start 06/17/18 at 09:00 Insulin Glargine (Lantus) 35 units QHS SC Last administered on 06/17/18at 20:50; Admin Dose 35 UNITS; Start 06/17/18 at 21:00 Lisinopril (Zestril) 5 mg DAILY PO ; Start 06/18/18 at 09:00 VTE Prophylaxis Risk score (from Ns)>0 risk: 11 SCD applied (from [facility] [place]): Yes Lines/Catheters IV Catheter Type: Bernal in Place: No Assessment/Plan Hospital Course Subjective Patient doing well however not able to titrate off nasal cannula at this time. Objective Physical exam General: Patient is laying in bed and answers questions appropriately Mentation: Patient is alert and oriented 4, Head: Normocephalic atraumatic Eyes: EOMI, pupils reactive to light Neck: Supple, nontender, midline Respiratory: Clear to auscultation bilaterally Cardiovascular: regular rate, no obvious murmurs Gastrointestinal: non-tender to palpation, bowel sounds heard. Neurological: Moves all extremities spontaneously, left leg motion reduced due to bandage Skin: Surgical site bandaged, CDI Assessment and plan Acute hypoxic respiratory distress -Patient desaturates without nasal cannula -Chest x-ray showing pulmonary edema -BNP mildly elevated -Echocardiogram showing stage II diastolic dysfunction, cardiology has been consulted -IV Lasix given x1, now on oral lasix Pulmonary edema -Possibly due to diastolic dysfunction, cardiology consulted -IV Lasix x1 given Total left knee arthroplasty secondary to osteo-arthritis -Orthopedic surgery to manage -Pain control -Monitor Hypertension -Continue home meds -Add lisinopril Diabetes mellitus -Continue home Lantus, insulin sliding scale, -Sugars elevated overnight however did not restart patient on his oral medicati ons, was waiting for morning labs, now within normal limits -Restart home meds -According to daughter and patient patient's blood sugars are well controlled with current regimen at home, may continue current regimen with minimal changes when discharged. Dyslipidemia -Continue home meds Disposition -We will discharge once titrating off nasal cannula. -We will also need to arrange CPAP as patient desaturates into the 70s overnight before discharge EMILY FRANKLIN June 18, 2018 11:53
--- NOTE | 2018-06-18 12:33 | CONS ---
Consult Date/Type/Reason Admit Date/Time June 15, 2018 at 14:23 Initial Consult Date Type of Consultation: cv Date/Time of Note DATE: 06/18/18 TIME: 12:32 Subjective Cardiology follow-up progress note Subjective: Discussed with staff. Patient with no chest pain or pressure. Patient has been LESS hypoxemic and has been tolerating off of the oxygen. Patient denies shortness of breath to me at this point. Objective: General: Obese gentleman in no acute distress HEENT: NC/AT. pupils are equal. round. NECK: . no stridor. CV: RRR. systolic murmur; no gallop or rubs. PULM: no wheezing or rhonchi. GI: SOFT, NT, ND, no rebound or guarding Extremity: Status post left knee surgery. neuro: awake and alert, OX3. Psych: calm and pleasant rectal: deferred Objective Vitals Vital Signs Date Temp Pulse Resp B/P (MAP) Pulse Ox O2 O2 Flow FiO2 Time Delivery Rate 06/18/18 Nasal 4.0 08:00 Cannula 06/18/18 98.2 72 15 109/56 100 07:31 (73) Intake and Output 06/17/18 06/17/18 06/18/18 1515:00 23:00 07:00 IntakeIntake Total 700 ml 420 ml 60 ml OutputOutput Total 600 ml 280 ml BalanceBalance 100 ml 420 ml -220 ml Results/Medications Result Diagram: 06/18/18 0452 06/18/18 0452 Results 24 hrs Laboratory Tests Test 06/17/18 12:59 06/17/18 17:56 06/17/18 20:45 06/18/18 01:26 Bedside Glucose 237 H 194 231 H 169 Test 06/18/18 04:52 06/18/18 08:24 White Blood Count 13.4 H Red Blood Count 4.33 L Hemoglobin 13.0 L Hematocrit 40.3 L Mean Corpuscular 93.1 Volume Mean Corpuscular 30.0 Hemoglobin Mean Corpuscular 32.3 Hemoglobin Concent Red Cell 12.8 Distribution Width Platelet Count 207 Mean Platelet Volume 10.4 Immature 0.400 Granulocytes % Neutrophils % 59.1 Lymphocytes % 24.3 Monocytes % 9.8 Eosinophils % 6.0 Basophils % 0.4 Nucleated Red Blood 0.0 Cells % Immature 0.050 H Granulocytes # Neutrophils # 7.9 H Lymphocytes # 3.3 H Monocytes # 1.3 H Eosinophils # 0.8 H Basophils # 0.1 Nucleated Red Blood 0.0 Cells # Sodium Level 139 Potassium Level 4.0 Chloride Level 98 Carbon Dioxide Level 34 H Anion Gap 7 Blood Urea Nitrogen 28 H Creatinine 1.02 Est Glomerular > 60 Filtrat Rate mL/min Glucose Level 174 Calcium Level 8.6 Phosphorus Level 4.8 Magnesium Level 1.9 Bedside Glucose 157 Home Meds Reported Medications Insulin Glargine,Hum.rec.anlog (Basaglar Kwikpen U-100) 100 Unit/1 Ml Insuln.pen, 30 UNIT SC QHS, EA 06/14/18 Glipizide* (Glipizide*) 5 Mg Tablet, 5 MG PO BID, TAB 06/14/18 Carvedilol* (Carvedilol*) 25 Mg Tablet, 25 MG PO BID, #60 TAB 06/14/18 Atorvastatin Calcium (Atorvastatin Calcium) 10 Mg Tablet, 10 MG PO QHS, #30 TAB 06/14/18 Aspirin (Low Dose Aspirin) 81 Mg Tablet.dr, 81 MG PO DAILY, #30 TAB 06/14/18 Metformin* (Glucophage*) 1,000 Mg Tablet, 1000 MG PO BID, #60 TAB 11/08/17 Discontinued Reported Medications Ciprofloxacin Hcl* (Ciprofloxacin Hcl*) 500 Mg Tablet, 500 MG PO BID, #14 TAB STARTED 11-03-17 FOR 7 DAYS 11/08/17 Losartan Potassium* (Losartan Potassium*) 50 Mg Tablet, 50 MG PO BID, TAB 11/08/17 Glyburide* (Glyburide*) 5 Mg Tablet, 5 MG PO BID, #60 TAB 11/08/17 Medications Current Medications Diphenhydramine HCl (Benadryl) 25 mg PACU ORDER PRN IV .PRURITUS; Start 06/14/18 at 08:30 Miscellaneous Information (* Miscellaneous Pharmacy Order) DURAMORPH: 0.1 MG SPI... GIVEN NEURAXIAL XX ; Start 06/14/18 at 08:30 IV Flush (NS 3 ml) 3 ml PER PROTOCOL IV ; Start 06/14/18 at 10:00 Ketorolac Tromethamine (Toradol) 15 mg Q6H PRN IV .PAIN Last administered on 06/17/18at 18:09; Admin Dose 15 MG; Start 06/14/18 at 10:00 Celecoxib (Celebrex) 100 mg BID PO Last administered on 06/18/18 08:25; Admin Dose 100 MG; Start 06/15/18 at 09:00 Gabapentin (Neurontin) 100 mg TID PO Last administered on 06/18/18 08:25; Admin Dose 100 MG; Start 06/14/18 at 13:00 Pantoprazole (Protonix Tab) 40 mg DAILY@06 PO Last administered on 06/18/18 05:21; Admin Dose 40 MG; Start 06/16/18 at 06:00 Naloxone HCl (Narcan) 0.2 mg Q2M PRN IV .RESP RATE; Start 06/14/18 at 10:00 Aspirin (Halfprin) 81 mg BID PO Last administered on 06/18/18 08:25; Admin Dose 81 MG; Start 06/15/18 at 09:00 Acetaminophen/ Hydrocodone Bitart ([place] (5/325)) 2 tab Q6H PRN PO MODERATE PAIN LEVEL 4-6 Last administered on 06/17/18 15:14; Admin Dose 2 TAB; Start 06/14/18 at 10:00 Atorvastatin Calcium (Lipitor) 10 mg QHS PO Last administered on 06/17/18 20:48; Admin Dose 10 MG; Start 06/14/18 at 21:00 Carvedilol (Coreg) 25 mg BID PO Last administered on 06/16/18 20:57; Admin Dose 25 MG; Start 06/14/18 at 21:00 Glipizide (Glucotrol) 5 mg WITH BREAKFAST DINNE PO Last administered on 06/18/18 08:31; Admin Dose 5 MG; Start 06/14/18 at 17:55 Diagnostic Test (Pha) (Accu-Chek) 1 ea 02 XX Last administered on 06/15/18 03:10; Admin Dose 1 EA; Start 06/15/18 at 02:00 Insulin Aspart (Novolog Insulin Pen) NOVOLOG *MILD* ALGORITHM WITH MEALS BEDTIME SC Last administered on 06/18/18 08:35; Admin Dose 1 UNIT; Start 06/14/18 at 11:40 Metformin HCl (Glucophage) 1,000 mg BID WITH MEALS PO Last administered on 06/18/18 08:27; Admin Dose 1,000 MG; Start 06/15/18 at 17:55 Albuterol/ Ipratropium (Duoneb) 3 ml Q6HWA RESP THERAPY HHN Last administered on 06/18/18at 09:29; Admin Dose 3 ML; Start 06/15/18 at 20:00 Albuterol/ Ipratropium (Duoneb) 3 ml Q2H RESP THERAPY PRN HHN shortness of breath; Start 06/15/18 at 14:30 Budesonide (Pulmicort (Neb)) 0.5 mg BID RESP THERAPY HHN Last administered on 06/18/18at 09:29; Admin Dose 0.5 MG; Start 06/15/18 at 14:30 Hydralazine HCl (Apresoline) 10 mg Q4H PRN IV sbp >160; Start 06/16/18 at 08:00 Furosemide (Lasix) 40 mg DAILY PO Last administered on 06/18/18at 08:26; Admin Dose 40 MG; Start 06/17/18 at 09:00 Insulin Glargine (Lantus) 35 units QHS SC Last administered on 06/17/18at 20:50; Admin Dose 35 UNITS; Start 06/17/18 at 21:00 Lisinopril (Zestril) 5 mg DAILY PO ; Start 06/18/18 at 09:00 Assessment/Plan Hospital Course (Demo Recall) Dyspnea/hypoxemia: Multifactorial secondary to acute decompensated diastolic congestive heart failure as well as likely sleep apnea patient with Preserved ejection fraction and Left ventricular hypertrophy Status post knee surgery Hypertension Diabetes Morbid obesity and obstructive sleep apnea REC: Continue with the current cardiac care Advised to use CPAP at nighttime Patient to follow-up with his regular business development sales executive in outpatient Continue aggressive incentive spirometry will dec coreg to avoid hypotension ( it had to be held ) DC planning as per primary team Thank you for his referral. We will continue to follow along with you until Dr. Harris returns on Tuesday DESTIN CORMIER MD June 18, 2018 12:33
[2018-06-18] MEDS: HYDROCODONE/APAP (5/325) TAB PO PRN (14:50)
[2018-06-18 16:15] VITALS: BP 121/58; PULSE 79; RESP 16
[2018-06-18 20:35] VITALS: BP 125/59; PULSE 80; RESP 18
[2018-06-18] MEDS: INSULIN GLARGINE [LANTus] (100 UNITS/ML) SYG SC SCH (20:59)
[2018-06-18] MEDS: ATORVASTATIN 10 MG TAB PO SCH (21:01)
[2018-06-19] MEDS: HYDROCODONE/APAP (5/325) TAB PO PRN (00:15)
[2018-06-19] MEDS: ACCU-CHEK XX SCH (02:00)
[2018-06-19 02:19] VITALS: BP 108/55; PULSE 72; RESP 19
[2018-06-19] MEDS: PANTOPRAZOLE (EC) 40 MG TAB PO SCH (05:31)
[2018-06-19 07:35] VITALS: BP 117/54; PULSE 72; RESP 18
[2018-06-19] MEDS: ALBUTEROL/IPRATROPIUM (NEB) 3 ML AMP HHN SCH ×2 (08:16→13:57)
[2018-06-19] MEDS: BUDESONIDE (NEB) 0.5MG/2ML AMP HHN SCH (08:25)
[2018-06-19] MEDS: metFORMIN 500 MG TAB PO SCH (09:05)
[2018-06-19] MEDS: CELECOXIB 100 MG CAP PO SCH (09:06)
[2018-06-19] MEDS: FUROSEMIDE 40 MG TAB PO SCH (09:06)
[2018-06-19] MEDS: GABAPENTIN 100 MG CAP PO SCH ×2 (09:06→13:55)
[2018-06-19] MEDS: LISINOPRIL 5 MG TAB PO SCH (09:07)
[2018-06-19] MEDS: glipiZIDE 5 MG TAB PO SCH (09:07)
[2018-06-19] MEDS: INSULIN ASPART [NOVOLOG] 3 ML PEN SC SCH ×2 (09:08→12:52)
[2018-06-19] MEDS: ASPIRIN (EC) 81 MG TAB PO SCH (09:11)
[2018-06-19 13:44] VITALS: BP 101/56; PULSE 82; RESP 18
--- NOTE | 2018-06-19 15:14 | CONS ---
Assessment/Plan Assessment/Plan Assessment/Plan (Daily) 1. Acute hypoxic respiratory distress- resolved - Doing well on room air during the day but requiring CPAP overnight - BNP normalized 2. Pulmonary edema - Cardiology consultation appreciated and will continue on Lasix daily - ECHO results noted 3. Osteoarthritis s/p Total left knee arthroplasty - Management per Ortho - Pain control 4. Hypertension - Continue home meds 5. Diabetes mellitus - Continue home Lantus, insulin sliding scale, - According to daughter and patient patient's blood sugars are well controlled with current regimen at home, may continue current regimen with minimal changes when discharged. 6. Dyslipidemia - Continue home meds 7. Disposition - CM on board for CPAP arrangements - Medically stable for discharge home and will need to follow up with outpatient [employer] Consultation Date/Type/Reason Admit Date/Time June 15, 2018 at 14:23 Initial Consult Date Type of Consult Internal medicine Reason for Consultation medical management Date/Time of Note DATE: 06/19/18 TIME: 15:09 24 HR Interval Summary Free Text/Dictation Patient denies any acute issues. No further respiratory issues and tolerating room air without desaturating during the day. Exam/Review of Systems Exam Vitals Vital Signs Date Temp Pulse Resp B/P (MAP) Pulse Ox O2 O2 Flow FiO2 Time Delivery Rate 06/19/18 78 18 98 Nasal 3.0 13:58 Cannula 06/19/18 97.9 101/56 13:44 (71) 06/19/18 21 08:27 Intake and Output 06/18/18 06/18/18 06/19/18 1515:00 23:00 07:00 IntakeIntake Total 300 ml 600 ml 120 ml OutputOutput Total 1450 ml 300 ml BalanceBalance 300 ml -850 ml -180 ml Exam General: Patient is laying in bed and answers questions appropriately Neck: Supple Respiratory: Clear to auscultation bilaterally. no wheezing or rhonchi Cardiovascular: regular rate and rhythm, no obvious murmurs Gastrointestinal: soft, non-tender to palpation, bowel sounds heard. Ext: Moves all extremities spontaneously Skin: Surgical site bandaged, CDI Results Result Diagram: 06/19/18 0441 06/19/18 0441 Results 24hrs Laboratory Tests Test 06/18/18 17:59 06/18/18 20:53 06/19/18 04:41 06/19/18 08:36 Bedside Glucose 175 178 148 White Blood Count 13.6 H Red Blood Count 4.45 L Hemoglobin 13.3 L Hematocrit 40.4 L Mean Corpuscular 90.8 Volume Mean Corpuscular 29.9 Hemoglobin Mean Corpuscular 32.9 Hemoglobin Concent Red Cell 12.9 Distribution Width Platelet Count 212 Mean Platelet Volume 10.2 Immature 0.500 H Granulocytes % Neutrophils % 61.4 Lymphocytes % 22.7 Monocytes % 9.1 Eosinophils % 6.0 Basophils % 0.3 Nucleated Red Blood 0.0 Cells % Immature 0.070 H Granulocytes # Neutrophils # 8.3 H Lymphocytes # 3.1 H Monocytes # 1.2 H Eosinophils # 0.8 H Basophils # 0.0 Nucleated Red Blood 0.0 Cells # Sodium Level 138 Potassium Level 5.0 Chloride Level 97 Carbon Dioxide Level 35 H Anion Gap 6 Blood Urea Nitrogen 25 H Creatinine 0.91 Est Glomerular > 60 Filtrat Rate mL/min Glucose Level 175 Calcium Level 9.0 Phosphorus Level 3.6 Magnesium Level 2.0 Total Bilirubin 0.8 Direct Bilirubin 0.00 Indirect Bilirubin 0.8 Aspartate Amino 24 Transf (AST/SGOT) Alanine 24 Aminotransferase (AL T/SGPT) Alkaline Phosphatase 72 B-Type Natriuretic 17 Peptide Total Protein 6.9 Albumin 3.6 Globulin 3.30 H Albumin/Globulin 1.09 Ratio Test 06/19/18 12:50 Bedside Glucose 180 Medications Medication Current Medications Diphenhydramine HCl (Benadryl) 25 mg PACU ORDER PRN IV .PRURITUS; Start 06/14/18 at 08:30 Miscellaneous Information (* Miscellaneous Pharmacy Order) DURAMORPH: 0.1 MG SPI... GIVEN NEURAXIAL XX ; Start 06/14/18 at 08:30 IV Flush (NS 3 ml) 3 ml PER PROTOCOL IV ; Start 06/14/18 at 10:00 Ketorolac Tromethamine (Toradol) 15 mg Q6H PRN IV .PAIN Last administered on 06/17/18at 18:09; Admin Dose 15 MG; Start 06/14/18 at 10:00 Celecoxib (Celebrex) 100 mg BID PO Last administered on 06/19/18at 09:06; Admin Dose 100 MG; Start 06/15/18 at 09:00 Gabapentin (Neurontin) 100 mg TID PO Last administered on 06/19/18at 13:55; Admin Dose 100 MG; Start 06/14/18 at 13:00 Pantoprazole (Protonix Tab) 40 mg DAILY@06 PO Last administered on 06/19/18 05:31; Admin Dose 40 MG; Start 06/16/18 at 06:00 Naloxone HCl (Narcan) 0.2 mg Q2M PRN IV .RESP RATE; Start 06/14/18 at 10:00 Aspirin (Halfprin) 81 mg BID PO Last administered on 06/19/18 09:11; Admin Dose 81 MG; Start 06/15/18 at 09:00 Acetaminophen/ Hydrocodone Bitart ([place] (5/325)) 2 tab Q6H PRN PO MODERATE PAIN LEVEL 4-6 Last administered on 06/19/18 00:15; Admin Dose 2 TAB; Start 06/14/18 at 10:00 Atorvastatin Calcium (Lipitor) 10 mg QHS PO Last administered on 06/18/18 21:01; Admin Dose 10 MG; Start 06/14/18 at 21:00 Glipizide (Glucotrol) 5 mg WITH BREAKFAST DINNE PO Last administered on 06/19/18 09:07; Admin Dose 5 MG; Start 06/14/18 at 17:55 Diagnostic Test (Pha) (Accu-Chek) 1 ea 02 XX Last administered on 06/15/18 03:10; Admin Dose 1 EA; Start 06/15/18 at 02:00 Insulin Aspart (Novolog Insulin Pen) NOVOLOG *MILD* ALGORITHM WITH MEALS BEDTIME SC Last administered on 06/19/18 12:52; Admin Dose 1 UNIT; Start 06/14/18 at 11:40 Metformin HCl (Glucophage) 1,000 mg BID WITH MEALS PO Last administered on 06/19/18 09:05; Admin Dose 1,000 MG; Start 06/15/18 at 17:55 Albuterol/ Ipratropium (Duoneb) 3 ml Q6HWA RESP THERAPY HHN Last administered on 06/19/18 13:57; Admin Dose 3 ML; Start 06/15/18 at 20:00 Albuterol/ Ipratropium (Duoneb) 3 ml Q2H RESP THERAPY PRN HHN shortness of breath; Start 06/15/18 at 14:30 Budesonide (Pulmicort (Neb)) 0.5 mg BID RESP THERAPY HHN Last administered on 06/19/18 08:25; Admin Dose 0.5 MG; Start 06/15/18 at 14:30 Hydralazine HCl (Apresoline) 10 mg Q4H PRN IV sbp >160; Start 06/16/18 at 08:00 Furosemide (Lasix) 40 mg DAILY PO Last administered on 06/19/18 09:06; Admin Dose 40 MG; Start 06/17/18 at 09:00 Insulin Glargine (Lantus) 35 units QHS SC Last administered on 06/18/18 20:59; Admin Dose 35 UNITS; Start 06/17/18 at 21:00 Lisinopril (Zestril) 5 mg DAILY PO Last administered on 06/19/18 09:07; Admin Dose 5 MG; Start 06/18/18 at 09:00 Carvedilol (Coreg) 12.5 mg BID PO Last administered on 06/19/18 09:06; Admin Dose 12.5 MG; Start 06/18/18 at 21:00 CHANG MOORE MD June 19, 2018 15:14
[2018-06-19] MEDS ORDERED: FURO40TA4 PO (15:18)
[2018-06-19] MEDS ORDERED: LISI-313 PO (15:18)
[2018-06-19] MEDS ORDERED: CARV12.579 PO (15:18)
[2018-06-19] MEDS ORDERED: ASPI-1044 PO (15:41)
[2018-06-19] MEDS ORDERED: HYDR-3601 PO (15:41)
--- NOTE | 2018-06-19 19:31 | CONS ---
Assessment/Plan Cardiology NYHA: II Heart Failure Type: Acute Heart Failure Type: Diastolic Assessment/Plan Hospital Course (Demo Recall) Acute decompensated diastolic congestive heart failure Preserved ejection fraction Left ventricular hypertrophy Status post knee surgery Hypertension Diabetes -respiratory status improving -titrate diuretics as needed titratr BP meds as needed Consultation Date/Type/Reason Admit Date/Time June 15, 2018 at 14:23 Initial Consult Date Type of Consult Cardiology Date/Time of Note DATE: 06/19/18 TIME: 19:29 24 HR Interval Summary Free Text/Dictation no sob,palp,cp Exam/Review of Systems Vital Signs Vitals Vital Signs Date Temp Pulse Resp B/P (MAP) Pulse Ox O2 O2 Flow FiO2 Time Delivery Rate 06/19/18 78 18 98 Nasal 3.0 13:58 Cannula 06/19/18 97.9 101/56 13:44 (71) 06/19/18 21 08:27 Intake and Output 06/18/18 06/18/18 06/19/18 1515:00 23:00 07:00 IntakeIntake Total 300 ml 600 ml 120 ml OutputOutput Total 1450 ml 300 ml BalanceBalance 300 ml -850 ml -180 ml Exam Constitutional: alert, oriented (nad, no dypsnea with speaking) Head: normocephalic Respiratory: other (course bs, no wheeze) Cardiovascular: regular rate and rhythm (s1s2) Gastrointestinal: soft, non-tender, bowel sounds Extremities: edema Labs Result Diagram: 06/19/18 0441 06/19/18 0441 Results 24hrs Laboratory Tests Test 06/18/18 20:53 06/19/18 04:41 06/19/18 08:36 06/19/18 12:50 Bedside Glucose 178 148 180 White Blood Count 13.6 H Red Blood Count 4.45 L Hemoglobin 13.3 L Hematocrit 40.4 L Mean Corpuscular 90.8 Volume Mean Corpuscular 29.9 Hemoglobin Mean Corpuscular 32.9 Hemoglobin Concent Red Cell 12.9 Distribution Width Platelet Count 212 Mean Platelet Volume 10.2 Immature 0.500 H Granulocytes % Neutrophils % 61.4 Lymphocytes % 22.7 Monocytes % 9.1 Eosinophils % 6.0 Basophils % 0.3 Nucleated Red Blood 0.0 Cells % Immature 0.070 H Granulocytes # Neutrophils # 8.3 H Lymphocytes # 3.1 H Monocytes # 1.2 H Eosinophils # 0.8 H Basophils # 0.0 Nucleated Red Blood 0.0 Cells # Sodium Level 138 Potassium Level 5.0 Chloride Level 97 Carbon Dioxide Level 35 H Anion Gap 6 Blood Urea Nitrogen 25 H Creatinine 0.91 Est Glomerular > 60 Filtrat Rate mL/min Glucose Level 175 Calcium Level 9.0 Phosphorus Level 3.6 Magnesium Level 2.0 Total Bilirubin 0.8 Direct Bilirubin 0.00 Indirect Bilirubin 0.8 Aspartate Amino 24 Transf (AST/SGOT) Alanine 24 Aminotransferase (AL T/SGPT) Alkaline Phosphatase 72 B-Type Natriuretic 17 Peptide Total Protein 6.9 Albumin 3.6 Globulin 3.30 H Albumin/Globulin 1.09 Ratio Harsha Mcgrath DO June 19, 2018 19:31
--- NOTE | 2018-06-21 19:01 | DS ---
DATE OF ADMISSION: 06/15/2018 DATE OF DISCHARGE: 06/19/2018 Mr. Morrison underwent a left total knee arthroplasty on 06/14/2018. There were no complications du ring surgery. He was subsequently admitted to the medical floor. He received postoperative antibiot ics and DVT prophylaxis. During his hospital stay, he was noted to have sleep apnea and decreased sa turation. He required 1 liter of oxygen on the medical floor. He progressed with physical therapy a nd passed physical therapy. Home oxygen was ordered for the patient. He was discharged home in stab le condition on 06/19/2018. He is to follow up within 14 days postoperatively. Dictated By: ALAYNA MCLEAN/ROSALIO Conf#: [id number] DID#: [id number]
== END 2018-06-19 17:15 | disposition home health service (06) | DRG 469 ==
LOC: INTOOBSV 05:40 → REC 05:40 → MS1 11:38 → OBSVTOIN 06-15 14:23
PROVIDERS: ADMIT Orthopaedic Surgery Adult Reconstructive Orthopaedic Surgery; ATTEND Orthopaedic Surgery Adult Reconstructive Orthopaedic Surgery
PROC: 0SRD069 Replacement of Left Knee Joint with Oxidized Zirconium on Polyethylene Synthetic Substitute, Cemented, Open Approach (ICD-10-PCS; principal; 2018-06-15)
DX: M17.12 Unilateral primary osteoarthritis, left knee (principal); I50.33 Acute on chronic diastolic (congestive) heart failure; Z68.41 Body mass index [BMI] 40.0-44.9, adult; E11.8 Type 2 diabetes mellitus with unspecified complications; I11.0 Hypertensive heart disease with heart failure; E87.70 Fluid overload, unspecified; E78.5 Hyperlipidemia, unspecified; G47.33 Obstructive sleep apnea (adult) (pediatric)
CPT/HCPCS: 36600; 71045; 73560; 80048; 80053; 82803; 82962; 83735; 83880; 84100; 85025; 86850; 86900; 86901; 87081; 88304; 88311; 93306; 94640; 94664; 97110; 97116; 97161; 97530; 99217; C1713; C1776; G0378; J0131; J0171; J0360; J0690; J0735; J1100; J1815; J1885; J1940; J2250; J2274; J2405; J2710; J2795; J3010; J3370; J7120